=== PATIENT | female | born 1970 | race Caucasian/White ===

== ENCOUNTER 2016-09-05 | Inpatient (IN) | payer BC ==
[~2016-09-05] VITALS: Ht 167.6 cm; Wt 74.2 kg
[~2016-09-05] MED LIST: ATEN-173 PO; METH-589 PO; MULT-506 PO
[2016-09-05] MEDS ORDERED: SODIUM CHLORIDE 0.9% 1000ML 1,000 ML IV STA (00:20)
--- NOTE | 2016-09-05 00:22 | EMERGENCY ROOM VISIT NOTE ---
History Report prepared by Barby: Makayla Piper Under the Supervision of: Dr. Aiden Regalado M.D. First contact with patient: 00:09 Chief Complaint: ABDOMINAL PAIN Stated Complaint: ABD PAIN History of Present Illness The patient is a 46 year old female who presents to the Emergency Room with complaints of mid abdominal pain that began this evening. She also complains of nausea and vomiting. The patient has a history of colon cancer and has an ileostomy. She did recently empty her ileostomy but has had less than normal output since then. She had surgery in 2013 and finished chemotherapy in December 2014. She is in remission at this point. She has not had abdominal issues in a while. Her most recent routine imaging and endoscopy was in April. She does not have a history of bowel obstructions. The patient has not taken anything for nausea or pain this evening. Denies fever, hematemesis, or other complaints Source of History: patient Onset: this evening Position: abdomen Timing: other (persistent) Associated Symptoms: + nausea, + vomiting, No fevers Review of Systems See HPI for pertinent positives & negatives. A total of 10 systems reviewed and were otherwise negative. Past Medical & Surgical Medical Problems: (1) Carcinoma of rectosigmoid (colon) (2) Hyperthyroidism Surgical Problems: (1) History of breast lump/mass excision (2) Status post biopsy (3) Status post colon resection (4) Status post resection liver met Family History FHx: cancer Social History Smoking Status: Never Smoker Drug Use: none Marital Status: single Occupation Status: employed Current/Historical Medications Scheduled Atenolol (Tenormin), 25 MG PO DAILY Methimazole (Methimazole ), 2.5 MG PO DAILY Allergies Coded Allergies: POLLEN (Verified Allergy, Unknown, UNKNOWN, 09/05/16) SINUS PROBLEMS Physical Exam Vital Signs Date Time Temp Pulse Resp B/P Pulse Ox O2 Delivery O2 Flow Rate FiO2 09/05/16 04:41 36.5 76 16 131/90 97 09/05/16 04:17 76 16 131/90 97 Room Air 09/05/16 02:30 87 18 143/95 100 Room Air 09/05/16 00:04 36.5 91 21 156/104 99 Room Air Physical Exam GENERAL: Patient is uncomfortable appearing and in mild distress. HEENT: No acute trauma, normocephalic atraumatic, mucous membranes dry, no nasal congestion, no scleral icterus. NECK: No stridor, no adenopathy, no meningismus, trachea is midline. LUNGS: No dyspnea. Clear to auscultation and equal bilaterally. No wheeze, no rhonchi. HEART: Regular rate and rhythm. No murmurs, rubs, gallops appreciated. ABDOMEN: Soft, tender to palpation of the mid-abdomen over incision scar, bowel sounds hyperactive, no masses appreciated, no peritonitis, she has an ostomy in the right mid-abdomen with minimal stool. BACK: No midline tenderness, no CVA tenderness EXTREMITIES: Normal motion all extremities, no cyanosis, no edema. NEUROLOGIC: Alert and oriented, no acute motor or sensory deficits, no focal weakness, cranial nerves grossly intact. SKIN: No rash, no jaundice, no diaphoresis. Medical Decision & Procedures ER Provider Diagnostic Interpretation: CT results as stated below per interpretation by me and the radiologist: CT ABDOMEN & PELVIS: Multiple comparison images including MRI of the pelvis dated 12/11/2013, CT of the pelvis 01/16/2014, CT of the abdomen and pelvis 11/28/2013, and PET CT 2013. Interval surgical changes of the rectosigmoid colon. There is prominent soft tissue and stranding in the presacral region, likely relating to prior surgery and treatment-related changes. Right lower quadrant ostomy is new since comparison. There are dilated, fluid- filled loops of small bowel measuring up to 3.5 cm concerning for small bowel obstruction. Transition point located in the mid pelvis (series 2, image 67). Trace interloop free fluid is present. Subcentimeter hypodensity in the left hepatic lobe measures up to 0.8 cm ( series 3, image 92) and is new since comparison. Remaining solid organs are unremarkable. Postsurgical changes of the right hepatic lobe. Stable subcentimeter hypodensity in the right hepatic lobe. Signed by Dr. Lance Cruz MD. Laboratory Results 09/05/16 00:33 Red Blood Count 5.15, Mean Corpuscular Volume 88.0, Mean Corpuscular Hemoglobin 32.6, Mean Corpuscular Hemoglobin Concent 37.1, Mean Platelet Volume 9.8, Neutrophils (%) (Auto) 77.9, Lymphocytes (%) (Auto) 14.2, Monocytes (%) (Auto) 6.5, Eosinophils (%) (Auto) 0.9, Basophils (%) (Auto) 0.3, Neutrophils # (Auto) 7.68, Lymphocytes # (Auto) 1.40, Monocytes # (Auto) 0.64, Eosinophils # (Auto) 0.09, Basophils # (Auto) 0.03 Test 09/05/16 00:33 09/05/16 00:35 09/05/16 00:55 09/05/16 04:44 White Blood Count 9.86 K/uL (4.8-10.8) Red Blood Count 5.15 M/uL (4.2-5.4) Hemoglobin 16.8 g/dL (12.0-16.0) Hematocrit 45.3 % (37-47) Mean Corpuscular Volume 88.0 fL (80-100) Mean Corpuscular Hemoglobin 32.6 pg (25-34) Mean Corpuscular Hemoglobin Concent 37.1 g/dl (32-36) Platelet Count 202 K/uL (130-400) Mean Platelet Volume 9.8 fL (7.4-10.4) Neutrophils (%) (Auto) 77.9 % Lymphocytes (%) (Auto) 14.2 % Monocytes (%) (Auto) 6.5 % Eosinophils (%) (Auto) 0.9 % Basophils (%) (Auto) 0.3 % Neutrophils # (Auto) 7.68 K/uL (1.4-6.5) Lymphocytes # (Auto) 1.40 K/uL (1.2-3.4) Monocytes # (Auto) 0.64 K/uL (0.11-0.59) Eosinophils # (Auto) 0.09 K/uL (0-0.5) Basophils # (Auto) 0.03 K/uL (0-0.2) RDW Standard Deviation 39.5 fL (36.4-46.3) RDW Coefficient of Variation 12.4 % (11.5-14.5) Immature Granulocyte % (Auto) 0.2 % Immature Granulocyte # (Auto) 0.02 K/uL (0.00-0.02) Est Creatinine Clear Calc Drug Dose 82.0 ml/min Total Bilirubin 0.9 mg/dl (0.2-1) Direct Bilirubin 0.2 mg/dl (0-0.2) Aspartate Amino Transf (AST/SGOT) 20 U/L (15-37) Alanine Aminotransferase (ALT/SGPT) 36 U/L (12-78) Alkaline Phosphatase 111 U/L (45-117) Total Protein 8.2 gm/dl (6.4-8.2) Albumin 4.2 gm/dl (3.4-5.0) Lipase 157 U/L (73-393) Bedside Hemoglobin 16.0 g/dl (12.0-16.0) Bedside Hematocrit 47 % (37-47) Bedside Sodium 139 mEq/L (135-144) Bedside Potassium 3.2 mEq/L (3.3-5.0) Bedside Chloride 98 mEq/L (101-112) Bedside Total CO2 26 mEq/l (24-31) Bedside Blood Urea Nitrogen 10 mg/dl (7-18) Bedside Creatinine 0.7 mg/dl (0.6-1.3) Bedside Glucose (other) 131 mg/dl (70-99) Bedside Ionized Calcium (Eusebio) 1.22 mmol/l (1.12-1.32) Urine Color YELLOW Urine Appearance CLOUDY (CLEAR) Urine pH 6.5 (4.5-7.5) Urine Specific [place] 1.017 (1.000-1.030) Urine Protein NEG (NEG) Urine Glucose (UA) NEG (NEG) Urine Ketones TRACE (NEG) Urine Occult Blood NEG (NEG) Urine Nitrite NEG (NEG) Urine Bilirubin NEG (NEG) Urine Urobilinogen NEG (NEG) Urine Leukocyte Esterase MODERATE (NEG) Urine WBC (Auto) 5-10 /hpf (0-5) Urine RBC (Auto) 5-10 /hpf (0-4) Urine Hyaline Casts (Auto) 10-30 /lpf (0-5) Urine Epithelial Cells (Auto) 20-30 /lpf (0-5) Urine Bacteria (Auto) NEG (NEG) Urine Test NEG (NEG) Laboratory results as reviewed by me. Medications Administered Medications (Trade) Dose Ordered Sig/Giovana Route Start Time Stop Time Status Last Admin Dose Admin Sodium Chloride (Nss 1000ml) 1,000 ml @ 999 mls/hr Q1H1M STAT IV 09/05/16 00:20 09/05/16 01:20 DC 09/05/16 00:40 999 MLS/HR Ondansetron HCl (Zofran Inj) 4 mg NOW STAT IV 09/05/16 00:33 09/05/16 00:34 DC 09/05/16 00:40 4 MG Lorazepam (Ativan Inj) 1 mg NOW STAT IV 09/05/16 01:48 09/05/16 01:49 DC 09/05/16 02:07 1 MG Morphine Sulfate (MoRPHine SULFATE INJ) 4 mg NOW STAT IV 09/05/16 02:44 09/05/16 02:45 DC 09/05/16 03:13 4 MG ED Course 0014: The patient was evaluated in room B5. A complete history and physical exam was performed. 0020: Ordered NSS 1000 ml @ 999 mls/hr IV. 0030: I reassessed the patient. She requested Zofran for nausea as it has worked for her before. 0033: Ordered Zofran Inj 4 mg IV. 0106: I reassessed the patient. She was less nauseous. 0148: I reassessed the patient and updated her on results so far. Ordered Ativan Inj 1 mg IV. 0240: I reassessed the patient. NG tube was in place. She requested something for pain. I discussed test results with her and she agreed with the plan. 0244: Ordered Morphine Sulfate 4 mg IV. 0300: I discussed the case with Dr. Nuha Barbosa. He requested that I make general surgery aware of the case. The patient will be evaluated for further management. 0311: I discussed the case with Dr. Younger - General Surgery. Medical Decision Differential: Gastroenteritis, Food Borne, Esophageal Perforation, , Electrolyte Abnormality, Dehydration, Intraabdominal Infection, UTI/ Pyelonephritis, Bowel Obstruction, Biliary Pathology, amongst other pathology entertained. 46 yr old female s/p colon CA with resection, chemo, radiation ending 2.5 yrs ago though since with ileostomy. Notes rapid onset nausea, vomiting, abdominal pain and decreased bowel outputs. She has evidence of obstruction by exam, story and confirmed by CT abdo/pelv. NG tube placed with improvement though was given some morphine for discomfort from NG tube. She does not have surgical abdomen by examination. She is stable, in no distress and breathing comfortable. Gen Surg aware anf will admit to medicine service. Consults Time Called: [phone] Consulting Physician: Dr. Nuha Barbosa Returned Call: [phone] I discussed the case with him. He requested that I make general surgery aware of the case. The patient will be evaluated for further management. Additional Consults: Time Called: [phone] Consulted Physician: Dr. Younger - General Surgery Returned Call: [phone] Additional Comments: I discussed the case with him. Impression Primary Impression: Small bowel obstruction Scribe Attestation The scribe's documentation has been prepared under my direction and personally reviewed by me in its entirety. I confirm that the note above accurately reflects all work, treatment, procedures, and medical decision making performed by me. Departure Information Dispostion Being Evaluated By Hospitalist Referrals Cora Reaves D.O. (PCP) Patient Instructions My [facility]
[2016-09-05] MEDS ORDERED: OPTIRAY 320 IV PRN (00:30)
[2016-09-05] MEDS ORDERED: ONDANSETRON INJ 2 MG/ML 2 ML VIAL IV STA (00:33)
[2016-09-05 00:50] LABS: BASO % 0.3 %; BASO ABS # 0.03 K/uL (0-0.2); COMPLETE YES; EOS % 0.9 %; HEMATOCRIT 45.3 % (37-47); IG% 0.2 %; LYMPH % 14.2 %; MEAN CORPUSCULAR HEMOGLOBIN 32.6 pg (25-34); MEAN CORPUSCULAR HGB CONC 37.1 g/dl (32-36); MEAN PLATELET VOLUME 9.8 fL (7.4-10.4); MONO % 6.5 %; NEUT % 77.9 %; PLATELET COUNT 202 K/uL (130-400); RED BLOOD COUNT 5.15 M/uL (4.2-5.4); WHITE BLOOD COUNT 9.86 K/uL (4.8-10.8)
[2016-09-05 00:59] LABS: ISTAT CREATININE 0.7 mg/dl (0.6-1.3); ISTAT IONIZED CALCIUM 1.22 mmol/l (1.12-1.32)
[2016-09-05 01:15] LABS: URINE APPEARANCE CLOUDY (CLEAR); URINE BILIRUBIN NEG (NEG); URINE COLOR YELLOW; URINE EPITHELIAL CELL AUTO 20-30 /lpf (0-5); URINE NITRITE NEG (NEG); URINE PH 6.5 (4.5-7.5); URINE SPECIFIC GRAVITY 1.017 (1.000-1.030); UROBILINOGEN NEG (NEG); ZZUR CULT IF INDIC CLEAN CATCH NO
[2016-09-05 01:17] LABS: BUN/CREATININE RATIO 12.2 (10-20); CALCIUM 9.9 mg/dl (8.5-10.1); CREATININE 0.88 mg/dl (0.60-1.20); POTASSIUM 3.1 mmol/L (3.5-5.1)
[2016-09-05 01:19] LABS: MANUAL MICROSCOPIC REQUIRED? NO; REVIEW REQ? NO
[2016-09-05] MEDS ORDERED: LORAZEPAM 2 MG/ML 1 ML VIAL IV STA (01:48)
[2016-09-05] MEDS ORDERED: MoRPHine SULFATE 4 MG/ML 1 ML CARP\\VIAL IV STA (02:44)
[2016-09-05] MEDS ORDERED: ONDANSETRON INJ 2 MG/ML 2 ML VIAL IV PRN (04:45)
[2016-09-05 04:48] VITALS: BP 142/95; PULSE 92; TEMP 36.8; O2SAT 95; Ht 167.6 cm; Wt 74.2 kg
--- NOTE | 2016-09-05 04:59 | History and Physical ---
History & Physical Date & Time of Service: Sep 05, 2016 at 04:00 . Chief Complaint: abdominal pain, nausea, vomiting . Primary Care Physician: Cora Reaves D.O. . History of Present Illness Source: patient, clinic records, hospital records 46 YO female followed by Dr. Cora Reaves. 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 Received chemotherapy, radiation therapy, with subsequent rectosigmoid resection and resection of liver met in April 2014. MRI of liver 05/07/16 showed subcentimeter lesions in the left and right hepatic lobes with features most consistent with benign cysts. CEA on 08/26/16 was 2.2. Tonight around 20:30 she developed abdominal pain and bloating. Abdominal pain was right-sided and did not radiate. Subsequently developed nausea and vomiting. No hematemesis. Ostomy output seemed to be less than usual. No melena or hematochezia. No fever, chills, sweats. No chest pain, cough, SOB. . Past Medical/Surgical History Medical Problems: (1) Carcinoma of rectosigmoid (colon) Permanent Comment: Rectal mass on digital exam Status post MRI revealing liver metastasis Status post FNA of liver revealing adenocarcinoma Colonoscopy 08/23/2013 revealing obstructing mass rectosigmoid colon EUS staging uT3 uT1 M1 Systemic chemotherapy with modified FOLFOX 6 Status post completion of combined radiation and chemotherapy. 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 Status: Resolved (2) Hyperthyroidism Status: Chronic Surgical Problems: (1) History of breast lump/mass excision Status: Chronic (2) Status post biopsy Status: Chronic (3) Status post colon resection Status: Chronic (4) Status post resection liver met Status: Chronic . 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 . Physical Exam Vital Signs Date Time Temp Pulse Resp B/P Pulse Ox O2 Delivery O2 Flow Rate FiO2 09/05/16 04:41 36.5 76 16 131/90 97 09/05/16 04:17 76 16 131/90 97 Room Air 09/05/16 02:30 87 18 143/95 100 Room Air 09/05/16 00:04 36.5 91 21 156/104 99 Room Air General Appearance: WD/WN, no apparent distress Head: normocephalic, atraumatic Eyes: normal inspection, PERRL, EOMI, sclerae normal (conjunctivae pink) ENT: hearing grossly normal, + pertinent finding (NGT right nostril) Neck: supple, no adenopathy, thyroid normal, no JVD, trachea midline Respiratory/Chest: lungs clear, no respiratory distress, no accessory muscle use Cardiovascular: regular rate, rhythm, no edema, no gallop, no JVD, no murmur Abdomen/GI: + pertinent finding (quiet bowel sounds, slightly distended, mild right-sided tenderness, right ostomy with loose brown stool) Extremities/Musculoskelatal: normal inspection, no calf tenderness, no pedal edema 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9 % Lymphocytes (%) (Auto) 14.2 % Monocytes (%) (Auto) 6.5 % Eosinophils (%) (Auto) 0.9 % Basophils (%) (Auto) 0.3 % Neutrophils # (Auto) 7.68 1.4-6.5 K/uL Lymphocytes # (Auto) 1.40 1.2-3.4 K/uL Monocytes # (Auto) 0.64 0.11-0.59 K/uL Eosinophils # (Auto) 0.09 0-0.5 K/uL Basophils # (Auto) 0.03 0-0.2 K/uL RDW Standard Deviation 39.5 36.4-46.3 fL RDW Coefficient of Variation 12.4 11.5-14.5 % Immature Granulocyte % (Auto) 0.2 % Immature Granulocyte # (Auto) 0.02 0.00-0.02 K/uL Sodium Level 140 136-145 mmol/L Potassium Level 3.1 3.5-5.1 mmol/L Chloride Level 101 98-107 mmol/L Carbon Dioxide Level 28 21-32 mmol/L Anion Gap 11.0 19.0 16-25 mmol/L Blood Urea Nitrogen 11 7-18 mg/dl Creatinine 0.88 0.60-1.20 mg/dl Est Creatinine Clear Calc Drug Dose 82.0 ml/min Estimated GFR () 91.3 Estimated GFR (Non- 78.8 BUN/Creatinine Ratio 12.2 10-20 Random Glucose 129 70-99 mg/dl Calcium Level 9.9 8.5-10.1 mg/dl Total Bilirubin 0.9 0.2-1 mg/dl Direct Bilirubin 0.2 0-0.2 mg/dl Aspartate Amino Transf (AST/SGOT) 20 15-37 U/L Alanine Aminotransferase (ALT/SGPT) 36 12-78 U/L Alkaline Phosphatase 111 45-117 U/L Total Protein 8.2 6.4-8.2 gm/dl Albumin 4.2 3.4-5.0 gm/dl Lipase 157 73-393 U/L Bedside Hemoglobin 16.0 12.0-16.0 g/dl Bedside Hematocrit 47 37-47 % Bedside Sodium 139 135-144 mEq/L Bedside Potassium 3.2 3.3-5.0 mEq/L Bedside Chloride 98 101-112 mEq/L Bedside Total CO2 26 24-31 mEq/l Bedside Blood Urea Nitrogen 10 7-18 mg/dl Bedside Creatinine 0.7 0.6-1.3 mg/dl Bedside Glucose (other) 131 70-99 mg/dl Bedside Ionized Calcium (Eusebio) 1.22 1.12-1.32 mmol/l Urine Color YELLOW Urine Appearance CLOUDY CLEAR Urine pH 6.5 4.5-7.5 Urine Specific [place] 1.017 1.000-1.030 Urine Protein NEG NEG Urine Glucose (UA) NEG NEG Urine Ketones TRACE NEG Urine Occult Blood NEG NEG Urine Nitrite NEG NEG Urine Bilirubin NEG NEG Urine Urobilinogen NEG NEG Urine Leukocyte Esterase MODERATE NEG Urine WBC (Auto) 5-10 0-5 /hpf Urine RBC (Auto) 5-10 0-4 /hpf Urine Hyaline Casts (Auto) 10-30 0-5 /lpf Urine Epithelial Cells (Auto) 20-30 0-5 /lpf Urine Bacteria (Auto) NEG NEG Urine Test NEG NEG Diagnostic Radiology CT ABDOMEN + PELVIS (preliminary reading per [facility]): postsurgical changes from resection of rectosigmoid colon RLQ ostomy dilated, fluid-filled loops of small bowel measuring up to 3.5 cm concerning for SBO 8 mm lesion left hepatic lobe . Impression Assessment and Plan SMALL BOWEL OBSTRUCTION CT findings consistent with small bowel obstruction. History of colon Ca with rectosigmoid resection. NGT placed in ED. Initial management will consist of bowel rest, IV fluids, analgesics, anti- emetics. Consult General Surgery- ED physician spoke to surgeon head of acquisitions. HEPATIC LESION LEFT LOBE History of liver met, resected. Being followed for subcentimeter lesions left and right hepatic lobes. Recent MRI consistent with cysts. Follow. HYPERTHYROIDISM Usually managed with methimazole and atenolol. Will be NPO until SBO resolves. Change beta antonio to IV metoprolol. Resume methimazole and atenolol when able. VTE PROPHYLAXIS No anticoagulants at this time in case surgical intervention necessary. SCD's. Ambulate. DISPOSITION Admit to Telemetry Unit due to need for cardiac monitoring with IV beta antonio) . Expected discharge to home. Family Medicine follow-up with Dr. Reaves. Medical Oncology follow-up with Dr. Jesus Pichardo. . VTE Prophylaxis VTE Risk Assessment Done? Y/N: Yes Risk Level: Moderate Given or contraindicated: SCD's
[2016-09-05] MEDS: METOPROLOL TARTRATE 1 MG/ML VIAL IV. SCH ×3 (06:08→17:52)
[2016-09-05] MEDS: POTASSIUM CHLORIDE INJ 20 MEQ in D5W AND LACTATED RINGERS 1,000 ML IV SCH ×3 (06:08→20:21)
--- NOTE | 2016-09-05 06:58 | DIAGNOSTIC IMAGING REPORT ---
CT ABD/PELVIS IV CONTRAST ONLY CLINICAL HISTORY: Diffuse abdominal pain, nausea, vomiting. COMPARISON STUDY: 11/28/2013 TECHNIQUE: Following the IV administration of 92 mL of Optiray-320, CT scan of the abdomen and pelvis was performed from the lung bases to the proximal femurs. Images are reviewed in the axial, sagittal, and coronal planes. IV contrast was administered without complication. CT DOSE: 363.30 mGy.cm FINDINGS: Lower chest: There is a stable 3 mm right lower lobe pulmonary nodule. Liver: There are a few subcentimeter hypodensities, most consistent with cysts. Portal vein appears patent. There is minor prominence the central hepatic ducts. There are postsurgical changes of a partial right lobe hepatectomy. Gallbladder: Surgically absent Spleen: Mildly enlarged measuring 12 cm Pancreas: Unremarkable. Adrenal glands: Unremarkable. Kidneys: There is an 11 mm left renal cyst Bowel: There is a right-sided ostomy. There are dilated fluid-filled proximal small bowel loops with decompression of distal small bowel. The findings are consistent with a small bowel obstructive pattern. There are postsurgical changes in the rectosigmoid. There is presacral soft tissue thickening. Peritoneum: There is trace pelvic fluid. No free air is visualized. Vasculature: The abdominal aorta is normal in course and caliber. Adenopathy: None. Pelvic viscera: The bladder, and pelvic viscera are unremarkable. Skeletal structures: No destructive osseous lesions are seen. IMPRESSION: 1. Interval partial right hepatic lobectomy, and interval bowel surgery with creation of a right lower quadrant ostomy 2. Small bowel obstructive pattern. Electronically signed by: Dao Alexander M.D. 09/05/2016 6:57 AM Dictated Date/Time: 09/05/2016 6:50 AM
[2016-09-05 07:24] VITALS: BP 138/86; PULSE 68; TEMP 36.7; O2SAT 96
[2016-09-05 07:35] LABS: BUN/CREATININE RATIO 12.2 (10-20); CALCIUM 9.3 mg/dl (8.5-10.1); CREATININE 0.74 mg/dl (0.60-1.20); POTASSIUM 3.6 mmol/L (3.5-5.1)
--- NOTE | 2016-09-05 07:36 | Pre-Operative Consultation ---
History General Date of Service: Sep 05, 2016. HPI HPI: The patient is a 46 year old female being seen for partial SBO versus ileus. She has complaints of mid abdominal pain that began last evening. She had associated nausea and vomiting. The patient has a history of rectal cancer and has an permanent ileostomy. She did recently empty her ileostomy but has had less than normal output but the same consistency. She had surgery in 2013 and finished chemotherapy in December 2014. Her most recent routine imaging and endoscopy was in April. She does not have a history of bowel obstructions. A CT scan shows signs consistent with a SBO although her stoma is working well. Procedure Urgency: Acute Risk Assessment Daily beta zaira use?: Yes Beta Zaira Details Indication Beta Zaira use: hypertension Problem List Medical Problems: (1) Small bowel obstruction Status: Acute Medical & Surgical History Past Medical History: cancer - colon, hypertension, hyperthyroidism Past Surgical History: colectomy, other (partial liver resection) Family History Family History: no pertinent family hx Social History Hx Tobacco Use In Past Year?: No Smoking Status: Never Smoker Drug Use: none Marital status: single Occupation status: employed Allergies Allergies: Coded Allergies: POLLEN (Verified Allergy, Unknown, UNKNOWN, 09/05/16) SINUS PROBLEMS Medications Current Inpatient Medications Current Inpatient Medications Medications (Trade) Dose Ordered Sig/Giovana Route Start Time Stop Time Status Last Admin Dose Admin Ioversol (Optiray 320) 100 ml UD PRN IV 09/05/16 00:30 09/09/16 00:29 Ondansetron HCl 4 mg 4 mg Q6H PRN IV 09/05/16 04:00 10/05/16 03:59 Potassium Chloride/Dextrose/ Lactated Ringer's (KCl Inj/D5W And Lactated Ringers) 1,010 ml @ 150 mls/hr Q6H44M IV 09/05/16 05:30 10/05/16 05:29 09/05/16 06:08 150 MLS/HR Hydromorphone HCl (Dilaudid Inj) 1 mg Q2H PRN IV 09/05/16 04:45 09/19/16 04:44 Metoprolol Tartrate (Lopressor Iv) 2.5 mg Q6 IV. 09/05/16 06:00 10/05/16 05:59 09/05/16 06:08 2.5 MG Review of Systems Review of Systems Constitutional: denies chills, denies diaphoresis, denies fever, denies weakness Eyes: reports: no symptoms ENT: reports: no symptoms reported Cardiovascular: denies: chest pain, chest pressure, chest tightness, palpitations, syncope Respiratory: denies: cough, cyanosis, orthopnea, short of breath, stridor, wheezing Gastrointestinal: abdominal pain, denies constipation, denies diarrhea, nausea , vomiting Genitourinary - Female: reports: no symptoms Musculoskeletal: denies back pain, denies joint pain, denies joint swelling, denies muscle stiffness, denies neck pain Integumentary: denies change in hair/nails, denies dryness, denies lesions, denies lumps, denies rash Neurologic: reports: no symptoms Psychiatric: reports: no symptoms Endocrine: denies: cold intolerance, hair changes, heat intolerance, polydipsia , polyuria Hematologic / Lymphatic: no symptoms Allergic / Immunologic: no symptoms Physical Exam Physical Exam General Appearance: + WD/WN, No distress Ears, Nose, Throat: + normal ENT inspection Neck: No abnormal inspection, No lymphadenophy, No stiffness, No tenderness, No tracheal deviation Respiratory: No abnormal breath sounds, No decreased breath sounds, No rales, No rhonchi, No stridor, No wheezing Cardiovascular: + other (right IJ port), No diastolic murmur, No gallop/S3, No gallop/S4, No systolic murmur, No tachycardia Abdomen: + other (pink and patent ileostomy), No abnormal bowel sounds, No distension, No hernia, No organomegaly, No tenderness Extremities: No calf tenderness, No deformity, No inflammation, No swelling Neurologic/Psychiatric: No disorientation, No motor deficit/weakness, No sensory deficit Skin Characteristics: No diaphoresis, No jaundice, No pallor, No rash Lymphatic: No abnormal adenopathy Diagnostics Labs Labs Results Past 24 Hours Test 09/05/16 00:33 09/05/16 00:35 09/05/16 00:55 09/05/16 05:57 Range/Units White Blood Count 9.86 4.8-10.8 K/uL Red Blood Count 5.15 4.2-5.4 M/uL Hemoglobin 16.8 12.0-16.0 g/dL Hematocrit 45.3 37-47 % Mean Corpuscular Volume 88.0 80-100 fL Mean Corpuscular Hemoglobin 32.6 25-34 pg Mean Corpuscular Hemoglobin Concent 37.1 32-36 g/dl Platelet Count 202 130-400 K/uL Mean Platelet Volume 9.8 7.4-10.4 fL Neutrophils (%) (Auto) 77.9 % Lymphocytes (%) (Auto) 14.2 % Monocytes (%) (Auto) 6.5 % Eosinophils (%) (Auto) 0.9 % Basophils (%) (Auto) 0.3 % Neutrophils # (Auto) 7.68 1.4-6.5 K/uL Lymphocytes # (Auto) 1.40 1.2-3.4 K/uL Monocytes # (Auto) 0.64 0.11-0.59 K/uL Eosinophils # (Auto) 0.09 0-0.5 K/uL Basophils # (Auto) 0.03 0-0.2 K/uL RDW Standard Deviation 39.5 36.4-46.3 fL RDW Coefficient of Variation 12.4 11.5-14.5 % Immature Granulocyte % (Auto) 0.2 % Immature Granulocyte # (Auto) 0.02 0.00-0.02 K/uL Sodium Level 140 136-145 mmol/L Potassium Level 3.1 3.5-5.1 mmol/L Chloride Level 101 98-107 mmol/L Carbon Dioxide Level 28 21-32 mmol/L Anion Gap 11.0 19.0 16-25 mmol/L Blood Urea Nitrogen 11 7-18 mg/dl Creatinine 0.88 0.60-1.20 mg/dl Est Creatinine Clear Calc Drug Dose 82.0 ml/min Estimated GFR () 91.3 Estimated GFR (Non- 78.8 BUN/Creatinine Ratio 12.2 10-20 Random Glucose 129 70-99 mg/dl Calcium Level 9.9 8.5-10.1 mg/dl Total Bilirubin 0.9 0.2-1 mg/dl Direct Bilirubin 0.2 0-0.2 mg/dl Aspartate Amino Transf (AST/SGOT) 20 15-37 U/L Alanine Aminotransferase (ALT/SGPT) 36 12-78 U/L Alkaline Phosphatase 111 45-117 U/L Total Protein 8.2 6.4-8.2 gm/dl Albumin 4.2 3.4-5.0 gm/dl Lipase 157 73-393 U/L Bedside Hemoglobin 16.0 12.0-16.0 g/dl Bedside Hematocrit 47 37-47 % Bedside Sodium 139 135-144 mEq/L Bedside Potassium 3.2 3.3-5.0 mEq/L Bedside Chloride 98 101-112 mEq/L Bedside Total CO2 26 24-31 mEq/l Bedside Blood Urea Nitrogen 10 7-18 mg/dl Bedside Creatinine 0.7 0.6-1.3 mg/dl Bedside Glucose (other) 131 70-99 mg/dl Bedside Ionized Calcium (Eusebio) 1.22 1.12-1.32 mmol/l Urine Color YELLOW Urine Appearance CLOUDY CLEAR Urine pH 6.5 4.5-7.5 Urine Specific [place] 1.017 1.000-1.030 Urine Protein NEG NEG Urine Glucose (UA) NEG NEG Urine Ketones TRACE NEG Urine Occult Blood NEG NEG Urine Nitrite NEG NEG Urine Bilirubin NEG NEG Urine Urobilinogen NEG NEG Urine Leukocyte Esterase MODERATE NEG Urine WBC (Auto) 5-10 0-5 /hpf Urine RBC (Auto) 5-10 0-4 /hpf Urine Hyaline Casts (Auto) 10-30 0-5 /lpf Urine Epithelial Cells (Auto) 20-30 0-5 /lpf Urine Bacteria (Auto) NEG NEG Urine Test NEG NEG Diagnostic Radiology Diagnostic Radiology CT ABD/PELVIS IV CONTRAST ONLY CLINICAL HISTORY: Diffuse abdominal pain, nausea, vomiting. COMPARISON STUDY: 11/28/2013 TECHNIQUE: Following the IV administration of 92 mL of Optiray-320, CT scan of the abdomen and pelvis was performed from the lung bases to the proximal femurs. Images are reviewed in the axial, sagittal, and coronal planes. IV contrast was administered without complication. CT DOSE: 363.30 mGy.cm FINDINGS: Lower chest: There is a stable 3 mm right lower lobe pulmonary nodule. Liver: There are a few subcentimeter hypodensities, most consistent with cysts. Portal vein appears patent. There is minor prominence the central hepatic ducts. There are postsurgical changes of a partial right lobe hepatectomy. Gallbladder: Surgically absent Spleen: Mildly enlarged measuring 12 cm Pancreas: Unremarkable. Adrenal glands: Unremarkable. Kidneys: There is an 11 mm left renal cyst Bowel: There is a right-sided ostomy. There are dilated fluid-filled proximal small bowel loops with decompression of distal small bowel. The findings are consistent with a small bowel obstructive pattern. There are postsurgical changes in the rectosigmoid. There is presacral soft tissue thickening. Peritoneum: There is trace pelvic fluid. No free air is visualized. Vasculature: The abdominal aorta is normal in course and caliber. Adenopathy: None. Pelvic viscera: The bladder, and pelvic viscera are unremarkable. Skeletal structures: No destructive osseous lesions are seen. IMPRESSION: 1. Interval partial right hepatic lobectomy, and interval bowel surgery with creation of a right lower quadrant ostomy 2. Small bowel obstructive pattern. Impression Assessment and Plan Assessment and Plan SBO -IVF -ngt -seems to be resolving with conservative measures -will follow
[2016-09-05] MEDS: HYDROmorphone INJ 1 MG/ML SYR IV PRN ×2 (10:49→17:56)
[2016-09-05] MEDS: ONDANSETRON INJ 2 MG/ML 2 ML VIAL IV PRN ×2 (11:12→17:56)
[2016-09-05 11:36] VITALS: BP 136/90; PULSE 87; TEMP 36.8; O2SAT 94
[2016-09-05 15:44] VITALS: BP 119/78; PULSE 65; TEMP 36.5; O2SAT 95
--- NOTE | 2016-09-05 16:33 | Progress Note ---
Internal Med Progress Note Date of Service: Sep 05, 2016. Provider Documentation: SUBJECTIVE: resting comfortably nausea resolved abdominal pain much better not passing gas yet afebrile no sob OBJECTIVE: Vital Signs-as noted below Exam: General-alert and oriented ENT-normal hearing Neck-no neck masses Lungs-cta b/l no wheezing or crackles Heart-s1 and s2 heard regular rate and rhythm no murmurs Abdomen-soft bowel sounds very sluggish non tender no distension Extremities-no erythema no edema Neuro-alert and awake moves extremities Lab data as noted below. ASSESSMENT & PLAN: SMALL BOWEL OBSTRUCTION on ct scan Hx of colon Ca with rectosigmoid resection. on NG tube, iv fluids, iv antiemetics and pain control Surgery on board pain improved to continue same for now HEPATIC LESION LEFT LOBE History of liver met and s/p resection. Recent MRI consistent with cysts. TO Follow as out patient. HYPERTHYROIDISM On methimazole and atenolol. currently NPO until SBO resolves. placed on IV metoprolol. Will resume methimazole and atenolol when able to take po.. VTE PROPHYLAXIS scds ambulate DISPOSITION Monitor on Telemetry Unit due to need for cardiac monitoring with IV beta antonio). Expect to discharge home. Family Medicine follow-up with Dr. Reaves. Medical Oncology follow-up with Dr. Jesus Pichardo. . Vital Signs: Date Time Temp Pulse Resp B/P Pulse Ox O2 Delivery O2 Flow Rate FiO2 09/05/16 16:00 Room Air 09/05/16 15:44 36.5 65 18 119/78 95 Room Air 09/05/16 12:00 Room Air 09/05/16 11:42 72 09/05/16 11:36 36.8 87 18 136/90 94 09/05/16 08:00 Room Air 09/05/16 07:24 36.7 68 20 138/86 96 Room Air 09/05/16 06:08 88 117/76 09/05/16 04:48 36.8 92 18 142/95 95 Room Air 09/05/16 04:41 36.5 76 16 131/90 97 09/05/16 04:17 76 16 131/90 97 Room Air 09/05/16 02:30 87 18 143/95 100 Room Air 09/05/16 00:04 36.5 91 21 156/104 99 Room Air Lab Results: Results Past Hours Test 09/05/16 00:33 09/05/16 00:35 09/05/16 00:55 09/05/16 05:57 Range/Units White Blood Count 9.86 4.8-10.8 K/uL Red Blood Count 5.15 4.2-5.4 M/uL Hemoglobin 16.8 12.0-16.0 g/dL Hematocrit 45.3 37-47 % Mean Corpuscular Volume 88.0 80-100 fL Mean Corpuscular Hemoglobin 32.6 25-34 pg Mean Corpuscular Hemoglobin Concent 37.1 32-36 g/dl Platelet Count 202 130-400 K/uL Mean Platelet Volume 9.8 7.4-10.4 fL Neutrophils (%) (Auto) 77.9 % Lymphocytes (%) (Auto) 14.2 % Monocytes (%) (Auto) 6.5 % Eosinophils (%) (Auto) 0.9 % Basophils (%) (Auto) 0.3 % Neutrophils # (Auto) 7.68 1.4-6.5 K/uL Lymphocytes # (Auto) 1.40 1.2-3.4 K/uL Monocytes # (Auto) 0.64 0.11-0.59 K/uL Eosinophils # (Auto) 0.09 0-0.5 K/uL Basophils # (Auto) 0.03 0-0.2 K/uL RDW Standard Deviation 39.5 36.4-46.3 fL RDW Coefficient of Variation 12.4 11.5-14.5 % Immature Granulocyte % (Auto) 0.2 % Immature Granulocyte # (Auto) 0.02 0.00-0.02 K/uL Sodium Level 140 141 136-145 mmol/L Potassium Level 3.1 3.6 3.5-5.1 mmol/L Chloride Level 101 106 98-107 mmol/L Carbon Dioxide Level 28 25 21-32 mmol/L Anion Gap 11.0 19.0 10.0 3-11 mmol/L Blood Urea Nitrogen 11 9 7-18 mg/dl Creatinine 0.88 0.74 0.60-1.20 mg/dl Est Creatinine Clear Calc Drug Dose 82.0 97.5 ml/min Estimated GFR () 91.3 112.6 Estimated GFR (Non- 78.8 97.2 BUN/Creatinine Ratio 12.2 12.2 10-20 Random Glucose 129 127 70-99 mg/dl Calcium Level 9.9 9.3 8.5-10.1 mg/dl Total Bilirubin 0.9 0.2-1 mg/dl Direct Bilirubin 0.2 0-0.2 mg/dl Aspartate Amino Transf (AST/SGOT) 20 15-37 U/L Alanine Aminotransferase (ALT/SGPT) 36 12-78 U/L Alkaline Phosphatase 111 45-117 U/L Total Protein 8.2 6.4-8.2 gm/dl Albumin 4.2 3.4-5.0 gm/dl Lipase 157 73-393 U/L Bedside Hemoglobin 16.0 12.0-16.0 g/dl Bedside Hematocrit 47 37-47 % Bedside Sodium 139 135-144 mEq/L Bedside Potassium 3.2 3.3-5.0 mEq/L Bedside Chloride 98 101-112 mEq/L Bedside Total CO2 26 24-31 mEq/l Bedside Blood Urea Nitrogen 10 7-18 mg/dl Bedside Creatinine 0.7 0.6-1.3 mg/dl Bedside Glucose (other) 131 70-99 mg/dl Bedside Ionized Calcium (Eusebio) 1.22 1.12-1.32 mmol/l Urine Color YELLOW Urine Appearance CLOUDY CLEAR Urine pH 6.5 4.5-7.5 Urine Specific [place] 1.017 1.000-1.030 Urine Protein NEG NEG Urine Glucose (UA) NEG NEG Urine Ketones TRACE NEG Urine Occult Blood NEG NEG Urine Nitrite NEG NEG Urine Bilirubin NEG NEG Urine Urobilinogen NEG NEG Urine Leukocyte Esterase MODERATE NEG Urine WBC (Auto) 5-10 0-5 /hpf Urine RBC (Auto) 5-10 0-4 /hpf Urine Hyaline Casts (Auto) 10-30 0-5 /lpf Urine Epithelial Cells (Auto) 20-30 0-5 /lpf Urine Bacteria (Auto) NEG NEG Urine Test NEG NEG
[2016-09-05] MEDS ORDERED: NURSING VERBAL MED ORDER ONE (18:15)
[2016-09-05] MEDS ORDERED: SODIUM CHLORIDE 0.9% 250ML 250 ML IV ONE (18:30)
[2016-09-05 19:11] VITALS: BP 118/71; PULSE 62; TEMP 36.9; O2SAT 95
[2016-09-05 23:15] VITALS: BP 111/73; PULSE 83; TEMP 37; O2SAT 95
[2016-09-06] VITALS (8 sets, daily range): BP systolic 120–155; BP diastolic 80–101; PULSE 63–91; TEMP 36.3–37; O2SAT 94–96
[2016-09-06] MEDS: POTASSIUM CHLORIDE INJ 20 MEQ in D5W AND LACTATED RINGERS 1,000 ML IV SCH ×4 (01:53→22:44)
[2016-09-06] MEDS: KETOROLAC TROMETHAMINE 30 MG/ML VIAL IV PRN ×2 (04:17→23:44)
[2016-09-06] MEDS: METOPROLOL TARTRATE 1 MG/ML VIAL IV. SCH ×5 (05:30→23:43)
[2016-09-06 06:40] LABS: BUN/CREATININE RATIO 10.7 (10-20); CALCIUM 8.7 mg/dl (8.5-10.1); CREATININE 0.7 mg/dl (0.60-1.20); POTASSIUM 3.7 mmol/L (3.5-5.1)
--- NOTE | 2016-09-06 08:21 | DIAGNOSTIC IMAGING REPORT ---
KUB HISTORY: Small bowel obstruction. COMPARISON: Abdomen and pelvis CT 09/05/2016. FINDINGS: Multiple dilated air-filled loops of small bowel within the abdomen. These measure up to 4.8 cm in diameter. This is consistent with a small bowel obstruction. This is similar to the prior study. There is a right lower quadrant ostomy. Multiple pelvic phleboliths are again noted. Surgical clips within the right upper quadrant. A nasogastric tube terminates in the stomach. No renal calculi. No ureteral calculi. No pneumoperitoneum or pneumatosis. IMPRESSION: No change in the small bowel obstruction. Nasogastric tube terminates in the stomach. Electronically signed by: Kanu Barry M.D. 09/06/2016 8:19 AM Dictated Date/Time: 09/06/2016 8:18 AM
--- NOTE | 2016-09-06 11:22 | Surgery Progress Note ---
Surgery Progress Note Date of Service Sep 06, 2016. Subjective Post OP Day: HD 2 + bowel movement (more drainage in bag), + diet (ngt), + feeling well, + pain controlled, No nausea, No vomiting Objective Vital Signs: Date Time Temp Pulse Resp B/P Pulse Ox O2 Delivery O2 Flow Rate FiO2 09/06/16 08:00 Room Air 09/06/16 07:39 36.5 76 18 120/81 96 Room Air 09/06/16 05:30 59 09/06/16 04:15 Room Air 09/06/16 03:10 36.8 66 16 132/80 95 Room Air 09/06/16 00:00 Room Air 09/06/16 00:00 55 09/05/16 23:15 37.0 83 16 111/73 95 Room Air 09/05/16 20:00 Room Air 09/05/16 19:11 36.9 62 18 118/71 95 Room Air 09/05/16 17:52 77 09/05/16 16:00 Room Air 09/05/16 15:44 36.5 65 18 119/78 95 Room Air 09/05/16 12:00 Room Air 09/05/16 11:42 72 09/05/16 11:36 36.8 87 18 136/90 94 Physical Exam: nasogastric drainage (700cc) General Appearance: WD/WN, no apparent distress Head: normocephalic, atraumatic Neck: supple, trachea midline Respiratory/Chest: lungs clear Cardiovascular: regular rate, rhythm Abdomen: normal bowel sounds, non tender, non distended, soft Extremities: non-tender, no pedal edema Laboratory Results: Results Past 24 Hours Test 09/06/16 05:30 Range/Units Sodium Level 146 136-145 mmol/L Potassium Level 3.7 3.5-5.1 mmol/L Chloride Level 109 98-107 mmol/L Carbon Dioxide Level 29 21-32 mmol/L Anion Gap 8.0 3-11 mmol/L Blood Urea Nitrogen 8 7-18 mg/dl Creatinine 0.70 0.60-1.20 mg/dl Est Creatinine Clear Calc Drug Dose 103.0 ml/min Estimated GFR () 120.4 Estimated GFR (Non- 103.9 BUN/Creatinine Ratio 10.7 10-20 Random Glucose 109 70-99 mg/dl Calcium Level 8.7 8.5-10.1 mg/dl Assessment & Plan SBO versus ileus -con't ngt one more day -expect drainage to slow -ambulate -IVF -ngt out in AM if does well -if still alot of drainage may order contrast CT scan abd/pelvis -if adhesion from pelvic radiation would transfer to [place] for exploration, also patient's wishes
--- NOTE | 2016-09-06 16:44 | Progress Note ---
Internal Med Progress Note Date of Service: Sep 06, 2016. Provider Documentation: SUBJECTIVE: denies any abdominal pain or nausea but has some tenderness in abdomen no sob or cough no chest pain afebrile OBJECTIVE: Vital Signs-as noted below Exam: General-alert and oriented ENT-normal hearing Neck-no neck masses Lungs-cta b/l no wheezing or crackles Heart-s1 and s2 heard regular rate and rhythm no murmurs Abdomen-soft bowel sounds very sluggish non tender no distension Extremities-no erythema no edema Neuro-alert and awake moves extremities Lab data as noted below. ASSESSMENT & PLAN: SMALL BOWEL OBSTRUCTION on ct scan Hx of colon Ca with rectosigmoid resection. on NG tube, iv fluids, iv antiemetics and pain control Surgery on board pain improved NG tube draining a lot if continues to drain plan for ct abd/pelvis in am as per surgery to continue same for now HEPATIC LESION LEFT LOBE History of liver met and s/p resection. Recent MRI consistent with cysts. TO Follow as out patient. HYPERTHYROIDISM On methimazole and atenolol. currently NPO until SBO resolves. placed on IV metoprolol. Will resume methimazole and atenolol when able to take po.. stable so far VTE PROPHYLAXIS scds ambulate DISPOSITION Monitor on Telemetry Unit due to need for cardiac monitoring with IV beta antonio). Expect to discharge home. Family Medicine follow-up with Dr. Reaves. Medical Oncology follow-up with Dr. Jesus Pichardo. . Vital Signs: Date Time Temp Pulse Resp B/P Pulse Ox O2 Delivery O2 Flow Rate FiO2 09/06/16 16:05 36.9 83 18 149/101 95 Room Air 09/06/16 16:00 Room Air 09/06/16 12:00 Room Air 09/06/16 11:54 72 09/06/16 11:31 36.4 82 18 133/83 96 Room Air 09/06/16 08:00 Room Air 09/06/16 07:39 36.5 76 18 120/81 96 Room Air 09/06/16 05:30 59 09/06/16 04:15 Room Air 09/06/16 03:10 36.8 66 16 132/80 95 Room Air 09/06/16 00:00 Room Air 09/06/16 00:00 55 09/05/16 23:15 37.0 83 16 111/73 95 Room Air 09/05/16 20:00 Room Air 09/05/16 19:11 36.9 62 18 118/71 95 Room Air 09/05/16 17:52 77 Lab Results: Results Past 24 Hours Test 09/06/16 05:30 Range/Units Sodium Level 146 136-145 mmol/L Potassium Level 3.7 3.5-5.1 mmol/L Chloride Level 109 98-107 mmol/L Carbon Dioxide Level 29 21-32 mmol/L Anion Gap 8.0 3-11 mmol/L Blood Urea Nitrogen 8 7-18 mg/dl Creatinine 0.70 0.60-1.20 mg/dl Est Creatinine Clear Calc Drug Dose 103.0 ml/min Estimated GFR () 120.4 Estimated GFR (Non- 103.9 BUN/Creatinine Ratio 10.7 10-20 Random Glucose 109 70-99 mg/dl Calcium Level 8.7 8.5-10.1 mg/dl
[2016-09-07 04:03] VITALS: BP 127/84; PULSE 78; TEMP 36.7; O2SAT 95
[2016-09-07] MEDS: METOPROLOL TARTRATE 1 MG/ML VIAL IV. SCH (05:32)
[2016-09-07] MEDS: POTASSIUM CHLORIDE INJ 20 MEQ in D5W AND LACTATED RINGERS 1,000 ML IV SCH (05:33)
--- NOTE | 2016-09-07 05:45 | Surgery Progress Note ---
Surgery Progress Note Date of Service Sep 07, 2016. Subjective Post OP Day: HD 3 + bowel movement (2500 cc out of stoma bag), + feeling well, + flatus, + pain controlled Objective Vital Signs: Date Time Temp Pulse Resp B/P Pulse Ox O2 Delivery O2 Flow Rate FiO2 09/07/16 05:32 59 09/07/16 04:30 Room Air 09/07/16 04:03 36.7 78 18 127/84 95 Room Air 09/07/16 00:00 Room Air 09/06/16 23:43 70 09/06/16 23:34 36.8 63 16 128/86 95 Room Air 09/06/16 20:00 95 Room Air 09/06/16 19:59 37.0 87 15 155/95 95 09/06/16 19:00 36.3 91 20 151/99 94 Room Air 09/06/16 16:05 36.9 83 18 149/101 95 Room Air 09/06/16 16:00 Room Air 09/06/16 12:00 Room Air 09/06/16 11:54 72 09/06/16 11:31 36.4 82 18 133/83 96 Room Air 09/06/16 08:00 Room Air 09/06/16 07:39 36.5 76 18 120/81 96 Room Air General Appearance: WD/WN, no apparent distress Head: normocephalic, atraumatic Neck: supple, trachea midline Respiratory/Chest: lungs clear Cardiovascular: regular rate, rhythm Abdomen: normal bowel sounds, non distended, soft, + tenderness (mild) Extremities: non-tender, no pedal edema Assessment & Plan SBO versus ileus -ngt out -ambulate -IVF -begin clears; should resolve with consrvative measures -if recurs from adhesions from pelvic radiation would transfer to [place] for exploration, also patient's wishes
[2016-09-07 07:50] VITALS: BP 138/82; PULSE 83; TEMP 36.9; O2SAT 95
[2016-09-07 11:31] VITALS: BP 133/81; PULSE 78; TEMP 36.8; O2SAT 99
[2016-09-07] MEDS: D5W AND LACTATED RINGERS 1,000 ML IV SCH ×2 (14:17→23:37)
--- NOTE | 2016-09-07 14:48 | Progress Note ---
Internal Med Progress Note Date of Service: Sep 07, 2016. Provider Documentation: SUBJECTIVE: Off of NG tube colostomy bag filled with air and stool tolerating clears denies any nausea or abdominal pain no sob OBJECTIVE: Vital Signs-as noted below Exam: General-alert and oriented ENT-normal hearing Neck-no neck masses Lungs-cta b/l no wheezing or crackles Heart-s1 and s2 heard regular rate and rhythm no murmurs Abdomen-soft bowel sounds present non tender no distension Extremities-no erythema no edema Neuro-alert and awake moves extremities Lab data as noted below. ASSESSMENT & PLAN: SMALL BOWEL OBSTRUCTION on ct scan Hx of colon Ca with rectosigmoid resection. on NG tube, iv fluids, iv antiemetics and pain control Surgery on board pain improved NG tube draining a lot if continues to drain plan for ct abd/pelvis in am as per surgery OFF of NG tube/ Has bowel sounds and bowels moving tolerating clears HEPATIC LESION LEFT LOBE History of liver met and s/p resection. Recent MRI consistent with cysts. TO Follow as out patient. HYPERTHYROIDISM On methimazole and atenolol. currently NPO until SBO resolves. placed on IV metoprolol. Will resume methimazole and atenolol today stable so far VTE PROPHYLAXIS scds ambulate DISPOSITION If stable possible d/c in am Expect to discharge home. Family Medicine follow-up with Dr. Reaves. Medical Oncology follow-up with Dr. Jesus Pichardo. . Vital Signs: Date Time Temp Pulse Resp B/P Pulse Ox O2 Delivery O2 Flow Rate FiO2 09/07/16 12:00 Room Air 09/07/16 11:31 36.8 78 18 133/81 99 Room Air 09/07/16 08:00 Room Air 09/07/16 07:50 36.9 83 18 138/82 95 Room Air 09/07/16 05:32 59 09/07/16 04:30 Room Air 09/07/16 04:03 36.7 78 18 127/84 95 Room Air 09/07/16 00:00 Room Air 09/06/16 23:43 70 09/06/16 23:34 36.8 63 16 128/86 95 Room Air 09/06/16 20:00 95 Room Air 09/06/16 19:59 37.0 87 15 155/95 95 09/06/16 19:00 36.3 91 20 151/99 94 Room Air 09/06/16 16:05 36.9 83 18 149/101 95 Room Air 09/06/16 16:00 Room Air
[2016-09-07 16:22] VITALS: BP 128/87; PULSE 78; TEMP 36.8; O2SAT 97
[2016-09-07] MEDS ORDERED: METOPROLOL TARTRATE 1 MG/ML VIAL IV PRN (18:00)
[2016-09-07 20:02] VITALS: BP 138/91; PULSE 69; TEMP 36.4; O2SAT 99
[2016-09-08] VITALS: BP 134/86; PULSE 73; TEMP 36.8; O2SAT 96
[2016-09-08 04:00] VITALS: BP 126/86; PULSE 67; TEMP 36.8; O2SAT 98
[2016-09-08 07:30] VITALS: BP 131/91; PULSE 79; TEMP 36.4; O2SAT 98
[2016-09-08 08:37] LABS: BUN/CREATININE RATIO 5.9 (10-20); CALCIUM 8.7 mg/dl (8.5-10.1); CREATININE 0.78 mg/dl (0.60-1.20); MAGNESIUM 1.9 mg/dl (1.8-2.4); POTASSIUM 3.4 mmol/L (3.5-5.1)
[2016-09-08] MEDS ORDERED: METHIMAZOLE 5 MG TAB PO SCH (09:00)
--- NOTE | 2016-09-08 09:25 | Surgery Progress Note ---
Surgery Progress Note Date of Service Sep 08, 2016. Subjective Post OP Day: HD 5 + bowel movement, + diet (clears), + feeling well, + flatus, No complaints, No nausea, No vomiting Objective Vital Signs: Date Time Temp Pulse Resp B/P Pulse Ox O2 Delivery O2 Flow Rate FiO2 09/08/16 08:00 Room Air 09/08/16 07:30 36.4 79 18 131/91 98 Room Air 09/08/16 04:00 Room Air 09/08/16 04:00 36.8 67 18 126/86 98 Room Air 09/08/16 00:00 36.8 73 18 134/86 96 Room Air 09/08/16 00:00 Room Air 09/07/16 20:02 36.4 69 18 138/91 99 Room Air 09/07/16 20:00 Room Air 09/07/16 16:22 36.8 78 18 128/87 97 Room Air 09/07/16 16:00 Room Air 09/07/16 12:00 Room Air 09/07/16 11:31 36.8 78 18 133/81 99 Room Air General Appearance: WD/WN, no apparent distress Head: normocephalic, atraumatic Abdomen: normal bowel sounds, non tender, non distended, soft, + pertinent finding (stoma working) Extremities: normal range of motion, no pedal edema Laboratory Results: Results Past 24 Hours Test 09/08/16 07:57 Range/Units Sodium Level 144 136-145 mmol/L Potassium Level 3.4 3.5-5.1 mmol/L Chloride Level 105 98-107 mmol/L Carbon Dioxide Level 29 21-32 mmol/L Anion Gap 10.0 3-11 mmol/L Blood Urea Nitrogen 5 7-18 mg/dl Creatinine 0.78 0.60-1.20 mg/dl Est Creatinine Clear Calc Drug Dose 92.8 ml/min Estimated GFR () 105.7 Estimated GFR (Non- 91.2 BUN/Creatinine Ratio 5.9 10-20 Random Glucose 132 70-99 mg/dl Calcium Level 8.7 8.5-10.1 mg/dl Magnesium Level 1.9 1.8-2.4 mg/dl Assessment & Plan SBO versus ileus -doing well with clears -ambulate -advance diet -discharge today or tomorrow per medicine
[2016-09-08] MEDS ORDERED: POTASSIUM CHLORIDE 10 MEQ TABCR PO ONE (09:45)
[2016-09-08 11:32] VITALS: BP 134/84; PULSE 69; TEMP 36.8; O2SAT 99
--- NOTE | 2016-09-08 14:11 | Progress Note ---
Internal Med Progress Note Date of Service: Sep 08, 2016. Provider Documentation: SUBJECTIVE: Off of NG tube tolerating liquid diet colostomy bag filled with air denies nausea or abdominal pain expecting to be discharged today OBJECTIVE: Vital Signs-as noted below Exam: General-alert and oriented ENT-normal hearing Neck-no neck masses Lungs-cta b/l no wheezing or crackles Heart-s1 and s2 heard regular rate and rhythm no murmurs Abdomen-soft bowel sounds present non tender no distension Extremities-no erythema no edema Neuro-alert and awake moves extremities Lab data as noted below. ASSESSMENT & PLAN: SMALL BOWEL OBSTRUCTION on ct scan Hx of colon Ca with rectosigmoid resection. on NG tube, iv fluids, iv antiemetics and pain control Surgery on board pain improved NG tube draining a lot if continues to drain plan for ct abd/pelvis in am as per surgery OFF of NG tube/ Has bowel sounds and bowels moving tolerating clears started on full liquids and advancing as tolerates if stable will f/c today HEPATIC LESION LEFT LOBE History of liver met and s/p resection. Recent MRI consistent with cysts. TO Follow as out patient. HYPERTHYROIDISM On methimazole and atenolol which were held while NPO and was placed on IV metoprolol. Resumed methimazole and atenolol yesterday stable so far VTE PROPHYLAXIS scds ambulate DISPOSITION If stable possible d/c later today Expect to discharge home. Family Medicine follow-up with Dr. Reaves. Medical Oncology follow-up with Dr. Jesus Pichardo. . Vital Signs: Date Time Temp Pulse Resp B/P Pulse Ox O2 Delivery O2 Flow Rate FiO2 09/08/16 12:00 Room Air 09/08/16 11:32 36.8 69 18 134/84 99 Room Air 09/08/16 08:00 Room Air 09/08/16 07:30 36.4 79 18 131/91 98 Room Air 09/08/16 04:00 Room Air 09/08/16 04:00 36.8 67 18 126/86 98 Room Air 09/08/16 00:00 36.8 73 18 134/86 96 Room Air 09/08/16 00:00 Room Air 09/07/16 20:02 36.4 69 18 138/91 99 Room Air 09/07/16 20:00 Room Air 09/07/16 16:22 36.8 78 18 128/87 97 Room Air 09/07/16 16:00 Room Air Lab Results: Results Past 24 Hours Test 09/08/16 07:57 Range/Units Sodium Level 144 136-145 mmol/L Potassium Level 3.4 3.5-5.1 mmol/L Chloride Level 105 98-107 mmol/L Carbon Dioxide Level 29 21-32 mmol/L Anion Gap 10.0 3-11 mmol/L Blood Urea Nitrogen 5 7-18 mg/dl Creatinine 0.78 0.60-1.20 mg/dl Est Creatinine Clear Calc Drug Dose 92.8 ml/min Estimated GFR () 105.7 Estimated GFR (Non- 91.2 BUN/Creatinine Ratio 5.9 10-20 Random Glucose 132 70-99 mg/dl Calcium Level 8.7 8.5-10.1 mg/dl Magnesium Level 1.9 1.8-2.4 mg/dl
--- NOTE | 2016-09-08 15:25 | Discharge Instructions ---
Discharge Instructions Admission Reason for Admission: Bowel Obstruction Discharge Discharge Diagnosis / Problem: SBO Discharge Goals Goal(s): Decrease discomfort, Improve function Activity Recommendations Activity Limitations: resume your previous activity . Instructions / Follow-Up Instructions / Follow-Up FOLLOWUP WITH FAMILY DOCTOR Cora Kenny ON Sep AT 1:20PM. Current Hospital Diet Patient's current hospital diet: Regular Diet Discharge Diet Recommended Diet: Regular Diet (SOFT DIET FOR FEW DAYS) Pending Studies Studies pending at discharge: no Medical Emergencies . Who to Call and When: Medical Emergencies: If at any time you feel your situation is an emergency, please call 911 immediately. . Non-Emergent Contact Non-Emergency issues call your: Primary Care Provider . . "Provider Documentation" section prepared by Henrry Ruff. VTE Core Measure Inpt VTE Proph given/why not?: SCD's
[2016-09-08 15:27] VITALS: BP_SYST 141; BP_SYST 163; BP_DIAS 109; BP_DIAS 96; PULSE 75; TEMP 36.9; O2SAT 99
[2016-09-08 15:40] VITALS: BP 141/96; PULSE 75; TEMP 36.9; O2SAT 99
--- NOTE | 2016-09-08 18:01 | Discharge Summary ---
Discharge Summary Admission Date: Sep 05, 2016 at 04:14 Discharge Date: Sep 08, 2016 Discharge Disposition: Home Principal Diagnosis: SBO Secondary Diagnoses/Problems: (1) Carcinoma of rectosigmoid (colon) Permanent Comment: Rectal mass on digital exam Status post MRI revealing liver metastasis Status post FNA of liver revealing adenocarcinoma Colonoscopy 08/23/2013 revealing obstructing mass rectosigmoid colon EUS staging uT3 uT1 M1 Systemic chemotherapy with modified FOLFOX 6 Status post completion of combined radiation and chemotherapy. 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 Status: Resolved (2) Hyperthyroidism Status: Chronic Procedures: CT ABD/PELVIS: 1. Interval partial right hepatic lobectomy, and interval bowel surgery with creation of a right lower quadrant ostomy 2. Small bowel obstructive pattern. KUB: No change in the small bowel obstruction. Nasogastric tube terminates in the stomach. Consultations: SURGERY Medication Reconciliation Continued Medications: Atenolol (Tenormin) 25 Mg Tab 25 MG PO DAILY, TAB Methimazole (Methimazole ) 5 Mg Tab 2.5 MG PO DAILY Admission Information HPI (per Admitting provider): 46 YO female followed by Dr. Cora Reaves. 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 Received chemotherapy, radiation therapy, with subsequent rectosigmoid resection and resection of liver met in April 2014. MRI of liver 05/07/16 showed subcentimeter lesions in the left and right hepatic lobes with features most consistent with benign cysts. CEA on 08/26/16 was 2.2. Tonight around 20:30 she developed abdominal pain and bloating. Abdominal pain was right-sided and did not radiate. Subsequently developed nausea and vomiting. No hematemesis. Ostomy output seemed to be less than usual. No melena or hematochezia. No fever, chills, sweats. No chest pain, cough, SOB. . Physical Exam (per Admitting): General Appearance: WD/WN, no apparent distress Head: normocephalic, atraumatic Eyes: normal inspection, PERRL, EOMI, sclerae normal (conjunctivae pink) ENT: hearing grossly normal, + pertinent finding (NGT right nostril) Neck: supple, no adenopathy, thyroid normal, no JVD, trachea midline Respiratory/Chest: lungs clear, no respiratory distress, no accessory muscle use Cardiovascular: regular rate, rhythm, no edema, no gallop, no JVD, no murmur Abdomen/GI: + pertinent finding (quiet bowel sounds, slightly distended, mild right-sided tenderness, right ostomy with loose brown stool) Extremities/Musculoskelatal: normal inspection, no calf tenderness, no pedal edema Neurologic/Psych: chiropractic assistant II-XII nml as tested (PERRL, EOMI, no facial palsy), alert, oriented x 3 Skin: normal color, warm/dry, no rash Lymphatic: no adenopathy Physical Exam (per Admitting): General Appearance: WD/WN, no apparent distress Head: normocephalic, atraumatic Eyes: normal inspection, PERRL, EOMI, sclerae normal (conjunctivae pink) ENT: hearing grossly normal, + pertinent finding (NGT right nostril) Neck: supple, no adenopathy, thyroid normal, no JVD, trachea midline Respiratory/Chest: lungs clear, no respiratory distress, no accessory muscle use Cardiovascular: regular rate, rhythm, no edema, no gallop, no JVD, no murmur Abdomen/GI: + pertinent finding (quiet bowel sounds, slightly distended, mild right-sided tenderness, right ostomy with loose brown stool) Extremities/Musculoskelatal: normal inspection, no calf tenderness, no pedal edema Neurologic/Psych: chiropractic assistant II-XII nml as tested (PERRL, EOMI, no facial palsy), alert, oriented x 3 Skin: normal color, warm/dry, no rash Lymphatic: no adenopathy Hospital Course SMALL BOWEL OBSTRUCTION on ct scan Hx of colon Ca with rectosigmoid resection. on NG tube, iv fluids, iv antiemetics and pain control Surgery on board pain improved NG tube draining a lot if continues to drain plan for ct abd/pelvis in am as per surgery OFF of NG tube/ Has bowel sounds and bowels moving tolerating clears started on full liquids and advancing as tolerates TOLERATING SOFT DIET DISCHARGED HOME HEPATIC LESION LEFT LOBE History of liver met and s/p resection. Recent MRI consistent with cysts. TO Follow as out patient. HYPERTHYROIDISM On methimazole and atenolol which were held while NPO and was placed on IV metoprolol. Resumed methimazole and atenolol yesterday stable so far DISCHARGED HOME Total time spent on discharge = 35MINUTES This includes examination of the patient, discharge planning, medication reconciliation, and communication with other providers. Discharge Instructions Please take this sheet to every appointment for the next month Discharge Instructions Admission Reason for Admission: Bowel Obstruction Discharge Discharge Diagnosis / Problem: SBO Discharge Goals Goal(s): Decrease discomfort, Improve function Activity Recommendations Activity Limitations: resume your previous activity . Instructions / Follow-Up Instructions / Follow-Up FOLLOWUP WITH FAMILY DOCTOR Cora Kenny ON Sep AT 1:20PM. Current Hospital Diet Patient's current hospital diet: Regular Diet Discharge Diet Recommended Diet: Regular Diet (SOFT DIET FOR FEW DAYS) Pending Studies Studies pending at discharge: no Medical Emergencies . Who to Call and When: Medical Emergencies: If at any time you feel your situation is an emergency, please call 911 immediately. . Non-Emergent Contact Non-Emergency issues call your: Primary Care Provider . . "Provider Documentation" section prepared by Henrry Ruff. VTE Core Measure Inpt VTE Proph given/why not?: SCD's
[2016-10-14] MEDS ORDERED: B-COTAB18 PO (13:15)
[2016-10-14] MEDS ORDERED: CHOL20009 PO (13:15)
== END 2016-09-08 17:39 | disposition home or self-care (01) | DRG 389 ==
LOC: ENRESERVDT → ENRESERVTM → C.EDB 00:01 → C.2T 04:14 → EDBEDREQ 04:16 → EDBEDREQSVC 04:16
PROVIDERS: ADMIT Hospitalist; ATTEND Internal Medicine
DX: K56.60 Unspecified intestinal obstruction (principal); C20 Malignant neoplasm of rectum; K56.7 Ileus, unspecified; E05.90 Thyrotoxicosis, unspecified without thyrotoxic crisis or storm; K76.89 Other specified diseases of liver; I10 Essential (primary) hypertension; Z85.038 Personal history of other malignant neoplasm of large intestine; Z85.05 Personal history of malignant neoplasm of liver; Z90.49 Acquired absence of other specified parts of digestive tract; Z92.21 Personal history of antineoplastic chemotherapy; Z92.3 Personal history of irradiation; Z79.899 Other long term (current) drug therapy

== ENCOUNTER → 2016-10-14 | Outpatient (CLI) | payer BC ==
[~2016-10-14] MED LIST changes: +B-COTAB18 PO; +CHOL20009 PO; -MULT-506 PO
[2016-10-14 13:00] VITALS: BP 131/92; PULSE 96; TEMP 36.7; O2SAT 99
--- NOTE | 2016-10-14 18:38 | Radiation Oncology Follow-Up ---
Radiation Oncology Follow-Up Date of Visit Oct 14, 2016. Radiation Completion Date 03/13/14 Diagnosis (1) Carcinoma of rectosigmoid (colon) Status: Resolved Onset Date: 08/18/2013 Permanent Comment: Rectal mass on digital exam Status post MRI revealing liver metastasis Status post FNA of liver revealing adenocarcinoma Colonoscopy 08/23/2013 revealing obstructing mass rectosigmoid colon EUS staging uT3 uT1 M1 Systemic chemotherapy with modified FOLFOX 6 Status post completion of combined radiation and chemotherapy. 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 Last Edited By: Vikki Ventura on Oct 15, 2015 13:13 Interim History Ms. Mendiola is a 46-year-old female diagnosed with metastatic rectal cancer in 2013. She initially underwent 6 cycles of FOLFOX 6 chemotherapy followed by pelvic chemoradiation therapy which completed in March 2014. She subsequently underwent a exploratory laparotomy which included a lower anterior resection, loop ileostomy and hepatic metastasis resection. Following the completion of her therapy, she did unfortunately developed a vaginal fistula after having a postoperative abscess. The patient continues to follow with Dr. Jesus Pichardo for medical oncology. She now presents for follow-up evaluation. In general, the patient is doing relatively well. Her major complaint at this point as she does have significant vaginal tightening which she does dose when she does have a pelvic examination. Otherwise, she denies any bleeding per rectum or issues with her ileostomy. She states her weight, energy and appetite are all stable. She states that she did have a colonoscopy by Dr. Reza last year which was essentially negative. She recently had restaging scans completed on 09/05/2016 which showed no evidence of recurrence in the scans of [address] Jesus Pichardo. Her most recent CEA level was 2.2 on 08/26/2016. Allergies Coded Allergies: POLLEN (Verified Allergy, Unknown, UNKNOWN, 09/05/16) SINUS PROBLEMS Home Medications Scheduled Atenolol (Tenormin), 25 MG PO DAILY B-Complex Vitamins (Vitamin B Complex), 1 TAB PO DAILY Cholecalciferol (Vitamin D), 1 TAB PO DAILY Methimazole (Methimazole ), 2.5 MG PO DAILY Review of Systems Gastrointestinal: Symptoms: WNL GI Comments: Food poisening over the weekend - okay now Oral: Symptoms: No Problems Respiratory: Symptoms: WNL Urinary: Symptoms: WNL Skin: Symptoms: No Problems Physical Exam Vital Signs Date Time Temp Pulse Resp B/P Pulse Ox O2 Delivery O2 Flow Rate FiO2 10/14/16 13:00 36.7 96 16 131/92 99 General Appearance: WD/WN, no apparent distress Eyes: normal inspection ENT: normal ENT inspection Neck: supple, no adenopathy Respiratory/Chest: chest non-tender, lungs clear, normal breath sounds, no respiratory distress Cardiovascular: regular rate, rhythm, no edema, no gallop, no JVD Abdomen: normal bowel sounds, non tender, soft, no organomegaly, + pertinent finding (Ileostomy noted, in place, in tact, clean with no sign of infection) Extremities: normal range of motion, non-tender, normal inspection, no pedal edema Neurologic/Psychiatric: corporate compliance manager II-XII nml as tested, no motor/sensory deficits, alert, normal mood/affect, oriented x 3 Skin: normal color, warm/dry, no rash Additional Studies CT ABD/PELVIS IV CONTRAST ONLY - 09/05/2016 CLINICAL HISTORY: Diffuse abdominal pain, nausea, vomiting. COMPARISON STUDY: 11/28/2013 TECHNIQUE: Following the IV administration of 92 mL of Optiray-320, CT scan of the abdomen and pelvis was performed from the lung bases to the proximal femurs. Images are reviewed in the axial, sagittal, and coronal planes. IV contrast was administered without complication. CT DOSE: 363.30 mGy.cm FINDINGS: Lower chest: There is a stable 3 mm right lower lobe pulmonary nodule. Liver: There are a few subcentimeter hypodensities, most consistent with cysts. Portal vein appears patent. There is minor prominence the central hepatic ducts. There are postsurgical changes of a partial right lobe hepatectomy. Gallbladder: Surgically absent Spleen: Mildly enlarged measuring 12 cm Pancreas: Unremarkable. Adrenal glands: Unremarkable. Kidneys: There is an 11 mm left renal cyst Bowel: There is a right-sided ostomy. There are dilated fluid-filled proximal small bowel loops with decompression of distal small bowel. The findings are consistent with a small bowel obstructive pattern. There are postsurgical changes in the rectosigmoid. There is presacral soft tissue thickening. Peritoneum: There is trace pelvic fluid. No free air is visualized. Vasculature: The abdominal aorta is normal in course and caliber. Adenopathy: None. Pelvic viscera: The bladder, and pelvic viscera are unremarkable. Skeletal structures: No destructive osseous lesions are seen. IMPRESSION: 1. Interval partial right hepatic lobectomy, and interval bowel surgery with creation of a right lower quadrant ostomy 2. Small bowel obstructive pattern. Assessment & Plan Ms. Mendiola is a 46-year-old female with oligometastatic rectal cancer treated with chemotherapy followed by pelvic chemoradiation and surgical resection of both the primary rectal cancer and liver metastasis. She completed pelvic chemoradiation on 03/13/2014. She did have a colonoscopy last year by Dr. Reza which was normal as per the patient and she did have a restaging scan completed in August 2016 which showed no evidence of recurrence. Her most recent CEA was within normal limits from August 2016 as well. The patient does continue to follow with Dr. Jesus Pichardo from medical oncology and will see him back in 6 months. At this point, the patient has no evidence of recurrence. We are happy with her progress overall. We would like to see her back in one-year for follow-up evaluation. Of note, we did provide the patient with a vaginal dilator and instructions on how to use it as well to help improve her vaginal tightness. She was encouraged to call us if she has any questions or concerns. The patient should continue to follow with gastroenterology, medical oncology, primary care and all of her other providers. Total Time In Follow-Up I spent 20 minutes examining and counseling the patient. I spent 15 minutes completing this note. Copy To Savi Gray M.D.; Cora Reaves D.O.; Jesus Pichardo M.D.
== END | disposition home or self-care (01) ==
LOC: C.ONC 12:45
PROVIDERS: ATTEND Physician Assistant Medical
DX: Z08 Encounter for follow-up examination after completed treatment for malignant neoplasm (principal); Z92.3 Personal history of irradiation; Z85.048 Personal history of other malignant neoplasm of rectum, rectosigmoid junction, and anus

== ENCOUNTER → 2017-10-12 | Outpatient (CLI) | payer BC ==
[2017-10-12 13:57] VITALS: BP 129/92; PULSE 96; TEMP 36.8; O2SAT 99
--- NOTE | 2017-10-12 14:57 | Radiation Oncology Follow-Up ---
Radiation Oncology Follow-Up Date of Visit Oct 12, 2017. Reason For Visit Annual follow-up Radiation Completion Date 03/13/14 Diagnosis (1) Carcinoma of rectosigmoid (colon) Status: Resolved Onset Date: 08/18/2013 Permanent Comment: Rectal mass on digital exam Status post MRI revealing liver metastasis Status post FNA of liver revealing adenocarcinoma Colonoscopy 08/23/2013 revealing obstructing mass rectosigmoid colon EUS staging uT3 uT1 M1 Systemic chemotherapy with modified FOLFOX 6 Status post completion of combined radiation and chemotherapy. 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 Last Edited By: Vikki Ventura on Oct 15, 2015 13:13 Interim History She has been doing well over the past year. Appetite is good and weight is stable. She is followed closely by medical oncology and has had recheck CAT scans. CEA titer is checked every 4 months and has been stable. She is due for recheck laboratory studies this month. She will also be due for recheck CT scans. She is having no difficulty with change of bowel habits. She has no problems with her ostomy appliance. There has been no change of urination. 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 She was given a vaginal dilator. She was given 2 different sizes to first use a smaller size than the larger. She has not been using this on a regular basis. Allergies Coded Allergies: POLLEN (Verified Allergy, Unknown, UNKNOWN, 09/05/16) SINUS PROBLEMS Home Medications Scheduled B-Complex Vitamins (Vitamin B Complex), 1 TAB PO DAILY Cholecalciferol (Vitamin D), 1 TAB PO DAILY Methimazole (Methimazole ), 2.5 MG PO DAILY Review of Systems Gastrointestinal: Symptoms: Ostomy GI Comments: Normal ostomy output; Oral: Symptoms: No Problems Respiratory: Symptoms: WNL Urinary: Symptoms: WNL Skin: Symptoms: No Problems Physical Exam Vital Signs Date Time Temp Pulse Resp B/P (MAP) Pulse Ox O2 Delivery O2 Flow Rate FiO2 10/12/17 13:57 36.8 96 12 129/92 99 Fatigue: None General Appearance: no apparent distress Eyes: normal inspection, EOMI ENT: normal ENT inspection, hearing grossly normal Neck: no adenopathy, thyroid normal Respiratory/Chest: lungs clear, no respiratory distress, no accessory muscle use Cardiovascular: regular rate, rhythm, no gallop, no murmur Abdomen: non tender, soft, no organomegaly Extremities: no pedal edema Neurologic/Psychiatric: no motor/sensory deficits, alert, normal mood/affect Skin: warm/dry Pain Management Patient Reports Pain: No Initial Pain Intensity: 0.0 Pain Management Plan She denies pain therefore requires no pain management. Laboratory Laboratory Results: were reviewed, and pertinent findings noted below Laboratory Comments: CEA October 05, 2017 was 1.7. Pathology Pathology Results: not applicable Imaging Imaging Studies: were reviewed, and pertinent findings noted below Imaging Comments Date/Time of Imaging Study Study Completed: 05/04/2017 8:39 AM Simphatic PACS Image Narrative EXAM CT ABDOMEN /PELVIS WITH IV CONTRAST WITH ORAL; CT THORAX WITH CONTRAST-2016 8:39 am HISTORY A case of rectal adenocarcinoma, S/P neoadjuvant chemotherapy, liver metastatic disease, S/P resection at both sites., lung nodules COMPARISON Comparison is made to the prior CT dated 11/04/2016. TECHNIQUE Helical axial images were obtained from the thoracic inlet through the pubic symphysis following the administration ofintravenous contrastandoral contrast. FINDINGS Chest: There is a right IJ MediPort which terminates in distal SVC. The heart is normal in size. There is no pericardial effusion. There are atherosclerotic calcifications of the coronary arteries. There are no enlarged axillary, mediastinal or hilar lymph nodes. There are no consolidations, pleural effusions or pneumothorax. There is a stable small pulmonary nodule in the right lower lobe (2.5 mm axial image 71). There are no new pulmonary nodules. Abdomen/pelvis: The liver is mildly nodular in contour, similar to the prior exam. Two small hepatic hypodensities are again noted, too small to adequately characterize, stable. Postoperative changes of partial hepatectomy are again noted. There are no new liver lesions. The gallbladder is absent. The common bile duct is mildly dilated, stable. The pancreas enhances homogeneously. There is no pancreatic ductal dilation. A small splenic hypodensity is again noted which is too small to adequately characterize. The adrenal glands are unremarkable. The kidneys enhance symmetrically. There is no hydronephrosis. There is a small cyst in the upper pole of the left kidney, stable. The bladder is partially distended and not adequately evaluated. The evaluation of the uterus is limited with CT. The endometrial stripe is heterogeneous and thick. Consider further evaluation with a pelvic ultrasound. Presacral soft tissue thickening is again noted. There is air in the cervix. The cervix closely abuts the surgical sutures in the pelvis. The abdominal aorta is within normal limits for size. There are no no enlarged abdominal or pelvic lymph nodes. The stomach is grossly unremarkable. There are no findings to suggest small bowel obstruction. There is an ileostomy in the right lower quadrant. There is scattered stool throughout the colon. Bones: There is no acute bony abnormality. IMPRESSION Chest: 1. Stable small pulmonary nodule in the right lower lobe. No new pulmonary nodules. 2. No enlarged thoracic lymph nodes. Abdomen/pelvis: 1. No new liver lesions. 2. Presacral soft tissue thickening with several small pockets of gas again noted. There is air in the cervix which closely abuts the surgical sutures in the pelvis. If there is clinical concern for a fistula between the cervix and the anastomosis, consider a water-soluble enema for further evaluation. 3. The endometrial stripe is heterogeneous and thick. Consider a pelvic ultrasound for further evaluation. Authenticated By Authenticating Date Authenticating Time Reading Providers(s) JONNATHAN CAMPOS MD 05-06-2017 14:41 JONNATHAN CAMPOS MD Assessment & Plan Plan: Continue regular follow-up with medical oncology. Laboratory studies and scans are planned for this month. Continue follow-up with her primary care physician. A follow-up appointment with our office was not given. She may call if she has any questions or concerns would be happy to see her. She was instructed to use the vaginal dilator on a regular basis. Total Time In Follow-Up I spent 20 minutes speaking to the patient and performing examination. I spent 15 minutes reviewing information and completing this note. [place] Copy To Savi Gray M.D.; Cora Reaves D.O.; Jesus Pichardo M.D.
== END | disposition home or self-care (01) ==
LOC: C.ONC 13:44
PROVIDERS: ATTEND Physician Assistant Medical
DX: Z08 Encounter for follow-up examination after completed treatment for malignant neoplasm (principal); Z92.3 Personal history of irradiation; Z85.038 Personal history of other malignant neoplasm of large intestine

== ENCOUNTER 2019-09-24 23:24 | Inpatient (IN) ==
[2019-09-24] MEDS ORDERED: HYDROmorphone INJ 1 MG/ML SYRINGE IV STA (23:44)
[2019-09-24] MEDS ORDERED: ONDANSETRON INJ 2 MG/ML 2 ML VIAL IV STA (23:44)
[2019-09-24] MEDS ORDERED: SODIUM CHLORIDE 0.9% 1000ML 1,000 ML IV ONE (23:44)
[2019-09-25 00:16] LABS: Basophils # (auto) 0.01 K/uL (0-0.2); Basophils % (auto) 0.1 %; Eosinophils # (auto) 0.04 K/uL (0-0.5); Eosinophils % (auto) 0.5 %; Hematocrit (blood only) 42.9 % (37-47); Hemoglobin 15.4 g/dL (12.0-16.0); Immature Granulocytes # (auto) 0.02 K/uL (0.00-0.02); Immature Granulocytes % (auto) 0.2 %; Lymphocytes # (auto) 0.82 K/uL (1.2-3.4); Lymphocytes % (auto) 10.1 %; Mean Corpuscular Hemoglobin 31.6 pg (25-34); Mean Corpuscular Hgb Conc 35.9 g/dL (32-36); Mean Corpuscular Volume 87.9 fL (80-100); Mean Platelet Volume 9.5 fL (7.4-10.4); Monocytes # (auto) 0.32 K/uL (0.11-0.59); Monocytes % (auto) 3.9 %; Neutrophils # (auto) 6.93 K/uL (1.4-6.5); Neutrophils % (auto) 85.2 %; Platelet Count 206 K/uL (130-400); RDW Coefficient of Variation 12.5 % (11.5-14.5); RDW Standard Deviation 40.3 fL (36.4-46.3); Red Blood Count 4.88 M/uL (4.2-5.4); White Blood Count 8.14 K/uL (4.8-10.8)
[2019-09-25 00:31] LABS: Appearance Urine Cloudy (Clear); Bilirubin Urine Negative (Negative); Blood Urine 1+ (Negative); Color Urine Yellow; Glucose Urine UA Negative (Negative); Ketones Urine Trace (Negative); Leukocyte Esterase Urine 3+ (Negative); Nitrite Urine Negative (Negative); Pregnancy Test, Urine Negative (Negative); Protein Urine Negative (Negative); RBC Urine Automated 0-4 /hpf (0-4); Specific Gravity Urine 1.023 (1.000-1.030); Urobilinogen Urine Negative (Negative); WBC Urine Automated >30 /hpf (0-5); pH Urine 5.5 (4.5-7.5)
[2019-09-25] MEDS ORDERED: LORazepam 1 MG/2 ML VIAL IV STA (00:32)
[2019-09-25 00:40] LABS: Alanine Aminotransferase 26 U/L (12-78); Albumin Level 3.8 gm/dl (3.4-5.0); Aspartate Aminotransferase 14 U/L (15-37); BUN Creatinine Ratio 17.6 (10-20); Bilirubin Direct < 0.1 mg/dl (0-0.2); Blood Urea Nitrogen 13 mg/dl (7-18); Carbon Dioxide 29 mmol/L (21-32); Chloride 103 mmol/L (98-107); Creatinine Clr Calc Pharmacy 97.7 ml/min; Est GFR (African American) 115.9; Glucose 143 mg/dl (70-99); Lipase 97 U/L (73-393); Potassium 3.5 mmol/L (3.5-5.1); Sodium 138 mmol/L (136-145)
[2019-09-25 00:42] LABS: Alkaline Phosphatase 108 U/L (45-117); Bilirubin,Total 0.5 mg/dl (0.2-1); Total Protein 7.7 gm/dl (6.4-8.2)
[2019-09-25 00:44] LABS: Bacteria Urine Automated 1+ (Negative); Calcium Oxalate Crystals Urine Present (None Prsent); Mucus Urine Present (None Prsent)
[2019-09-25 01:27] LABS: Magnesium 1.9 mg/dl (1.8-2.4)
[2019-09-25] MEDS ORDERED: METOPROLOL TARTRATE 1 MG/ML VIAL IV STA (01:27)
--- NOTE | 2019-09-25 02:06 | History & Physical Report ---
Date of Service September 25, 2019 Assessment & Plan (1) Small bowel obstruction: Recurrent SBO hx metastatic colon cancer status post surgery, chemoradiation (disease currently in remission) Situational hypertension Postprandial hyperglycemia rule out DM Asymptomatic pyuria Patient at risk for complicated UTI, hx peritoneal vaginal fistula as per records Patient not septic for now hyperthyroidism as per records. Currently off maintenance medications. Medical telemetry given hypertensive urgency Analgesia, anxiolytic PRN Continue NGT decompression Surgery consult RE recurrent SBO (ER provider already in touch with Dr. Cruz.) Check hemoglobin A1c Follow urine cultures, hold off on antibiotics for now. DVT prophylaxis. SCDs for now (RE traumatic epistaxis; Lovenox 40 mg subcutaneous daily once epistaxis resolved and hemoglobin stable.) Full code Text document was generated using [employer] voice recognition software. It may contain grammatical or spelling errors. Kindly contact undersigned for clarification of any documentation item in question. History of Present Illness Chief Complaint: Abdominal pain Primary Care Provider: Cora Reaves DO History obtained from patient, family, and records. Medical history significant for metastatic colon cancer status post surgery, chemoradiation, hyperthyroidism as per records. Recent confinement August 2016 for small bowel obstruction resolved with conservative management. Last night around dinnertime, patient noted achy central abdominal pain with nausea, no emesis. Patient subsequently noted some slowing of ileostomy output. No fever, no chills. No chest pain, no S OB. At the ER, NGT inserted for SBO. Traumatic epistaxis on first attempt. Medical History as above Surgical History : Breast lump excision, bowel surgery vascular device placement, urologic procedures, liver biopsy, hepatectomy, hysteroscopic biopsy/polypectomy Family History : Breast cancer Personal/Social history : Non-smoker, occasional EtOH intake, research assistant research scientist Allergies Allergy/AdvReac Type Severity Reaction Status Date / Time pollen extracts Allergy Unknown UNKNOWN Verified 09/25/19 01:33 Home Medications Home Medications Medication Instructions Recorded Confirmed Type multivitamin [Multiple Vitamins] 1 tab PO DAILY 09/25/19 09/25/19 History Past Med/Surg History Medical History 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" Hyperthyroidism (Chronic) Surgical History History of breast lump/mass excision (Chronic ~2006) Status post biopsy (Chronic 08/23/13) Status post colon resection (Chronic) Social History Preferred Language: Estonian Communication Ability: Effective 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 Beliefs That Will Affect Care: None Current Living Situation: Significant Other Other Information That Helps Us Care for You: No Feels Safe at Home: Yes Safety Concerns: Feels Safe At This Time Smoking Status: Never smoker Second Hand Exposure: No ; Hx Alcohol Use: No Hx Substance Use: No Review of Systems Review of Systems: As per HPI, all 10 systems reviewed, all other ROS negative Physical Exam Physical Exam: GENERAL: slightly uncomfortable, slightly anxious, no respiratory distress SKIN: Normal color, warm HEENT: [place] palpebral conjunctivae, no ptosis, dry buccal mucosa, NGT to right nostril, dried blood left nostril NECK : Supple, no tenderness CHEST : CTA, no tenderness HEART : Tachycardic , no obvious murmurs ABDOMEN: Some distention, minimal central abdominal tenderness, ileostomy bag on the right side EXTREMITIES : No LE swelling/tenderness, no other conspicuous deformities noted NEUROLOGIC : Coherent, no facial asymmetry, no other gross focality Results & Data Vital Signs (Past 12 Hours) Vital Signs Temp Pulse Pulse Resp BP BP Pulse Ox 09/25/19 01:38 101 H 20 163/101 H 97 09/25/19 00:00 90 15 155/117 H 98 09/24/19 23:31 36.6 C 91 H 18 148/102 H 99 Laboratory Results Laboratory Results WBC 8.14 K/uL (4.8-10.8) 09/25/19 00:05 RBC 4.88 M/uL (4.2-5.4) 09/25/19 00:05 Hgb 15.4 g/dL (12.0-16.0) 09/25/19 00:05 Hct 42.9 % (37-47) 09/25/19 00:05 MCV 87.9 fL (80-100) 09/25/19 00:05 MCH 31.6 pg (25-34) 09/25/19 00:05 MCHC 35.9 g/dL (32-36) 09/25/19 00:05 RDW Std Deviation 40.3 fL (36.4-46.3) 09/25/19 00:05 RDW Coeff of Faiza 12.5 % (11.5-14.5) 09/25/19 00:05 Plt Count 206 K/uL (130-400) 09/25/19 00:05 MPV 9.5 fL (7.4-10.4) 09/25/19 00:05 Immature Gran % (Auto) 0.2 % 09/25/19 00:05 Neut % (Auto) 85.2 % 09/25/19 00:05 Lymph % (Auto) 10.1 % 09/25/19 00:05 [place] % (Auto) 3.9 % 09/25/19 00:05 Eos % (Auto) 0.5 % 09/25/19 00:05 Baso % (Auto) 0.1 % 09/25/19 00:05 Immature Gran # (Auto) 0.02 K/uL (0.00-0.02) 09/25/19 00:05 Neut # (Auto) 6.93 K/uL (1.4-6.5) H 09/25/19 00:05 Lymph # (Auto) 0.82 K/uL (1.2-3.4) L 09/25/19 00:05 [place] # (Auto) 0.32 K/uL (0.11-0.59) 09/25/19 00:05 Eos # (Auto) 0.04 K/uL (0-0.5) 09/25/19 00:05 Baso # (Auto) 0.01 K/uL (0-0.2) 09/25/19 00:05 Sodium 138 mmol/L (136-145) 09/25/19 00:05 Potassium 3.5 mmol/L (3.5-5.1) 09/25/19 00:05 Chloride 103 mmol/L (98-107) 09/25/19 00:05 Carbon Dioxide 29 mmol/L (21-32) 09/25/19 00:05 Anion Gap 5.0 (3-11) 09/25/19 00:05 BUN 13 mg/dl (7-18) 09/25/19 00:05 Creatinine 0.71 mg/dl (0.6-1.2) 09/25/19 00:05 Est Cr Clr Drug Dosing 97.7 ml/min 09/25/19 00:05 Est GFR ( Amer) 115.9 09/25/19 00:05 Est GFR (Non-Af Amer) 100.0 09/25/19 00:05 BUN/Creatinine Ratio 17.6 (10-20) 09/25/19 00:05 Glucose 143 mg/dl (70-99) H 09/25/19 00:05 Calcium 10.0 mg/dl (8.5-10.1) 09/25/19 00:05 Magnesium 1.9 mg/dl (1.8-2.4) 09/25/19 00:05 Total Bilirubin 0.5 mg/dl (0.2-1) 09/25/19 00:05 Direct Bilirubin < 0.1 mg/dl (0-0.2) 09/25/19 00:05 AST 14 U/L (15-37) L 09/25/19 00:05 ALT 26 U/L (12-78) 09/25/19 00:05 Alkaline Phosphatase 108 U/L (45-117) 09/25/19 00:05 Total Protein 7.7 gm/dl (6.4-8.2) 09/25/19 00:05 Albumin 3.8 gm/dl (3.4-5.0) 09/25/19 00:05 Lipase 97 U/L (73-393) 09/25/19 00:05 Urine Color Yellow 09/25/19 00:05 Urine Appearance Cloudy (Clear) A 09/25/19 00:05 Urine pH 5.5 (4.5-7.5) 09/25/19 00:05 Ur Specific [place] 1.023 (1.000-1.030) 09/25/19 00:05 Urine Protein Negative (Negative) 09/25/19 00:05 Urine Glucose (UA) Negative (Negative) 09/25/19 00:05 Urine Ketones Trace (Negative) H 09/25/19 00:05 Urine Blood 1+ (Negative) H 09/25/19 00:05 Urine Nitrite Negative (Negative) 09/25/19 00:05 Urine Bilirubin Negative (Negative) 09/25/19 00:05 Urine Urobilinogen Negative (Negative) 09/25/19 00:05 Ur Leukocyte Esterase 3+ (Negative) H 09/25/19 00:05 Urine WBC (Auto) >30 /hpf (0-5) H 09/25/19 00:05 Urine RBC (Auto) 0-4 /hpf (0-4) 09/25/19 00:05 U Hyaline Cast (Auto) 1-5 /lpf (0-5) 09/25/19 00:05 U Epithel Cells (Auto) 10-20 /lpf (0-5) H 09/25/19 00:05 Urine Bacteria (Auto) 1+ (Negative) H 09/25/19 00:05 Urine Crystals Not Reportable 09/25/19 00:05 Calcium Oxalate Crystal Present (None Prsent) A 09/25/19 00:05 Urine Mucus Present (None Prsent) A 09/25/19 00:05 Urine Yeast Not Reportable 09/25/19 00:05 Urine Test Negative (Negative) 09/25/19 00:[address] abdomen pelvis initial read 9 mm cyst left lower lobe. Small bowel obstruction with transition point left mid abdomen. Postsurgical changes. EKG as per my interpretation: Rate 105, sinus tachycardia, normal axis, no ischemia
[2019-09-25] MEDS ORDERED: LORazepam 0.25 MG/0.5 ML VIAL IV PRN (03:06)
[2019-09-25] MEDS ORDERED: MoRPHine SULFATE 4 MG/ML 1 ML CARP\\VIAL IV PRN (03:06)
[2019-09-25] MEDS ORDERED: PROMETHAZINE HCL 12.5 MG in SODIUM CHLORIDE 0.9% 50 ML IV PRN (03:06)
[2019-09-25] MEDS ORDERED: TRAMADOL HCL 50 MG TABLET PO PRN (03:06)
[2019-09-25] MEDS: POTASSIUM CHLORIDE 40 MEQ in SODIUM CHLORIDE 0.9% 1000ML 1,000 ML IV SCH ×2 (03:38→23:12)
--- NOTE | 2019-09-25 04:02 | Emergency Department Note ---
Entered by Edinson Elizabeth acting as a scribe for Aiden Regalado MD ED Provider Note Name: MUSA WILKINS Age: 49 Arrives Via: Walk-In Informant: Patient CC: abdominal pain HPI: [id number] arrives for evaluation of constant abdominal pain that began this evening. The patient states that she is nauseous and having upper abdominal pain. She notes she has a history of abdominal surgeries and has an ostomy bag in place. She reports that she emptied the bag about 45 minutes ago but there has been little output. The patient denies chest pain, fevers, vomiting, and any other symptoms. The patient's last small bowel obstruction was August of 2016, and she finished Chemotherapy in 2014 for her colon cancer. ROS: See above HPI for pertinent positives & negatives. A total of 10 systems reviewed and were otherwise negative. Past Medical History:Colon CA, Hyperthyroid Past Surgical History:Bowel resection, breast mass excision Family History:See Below Social History:Non smoker, lives with , occasional etoh Home Medications:See Below Allergies:pollen extracts Vitals:BP 148/102, HR 91, RESP 18, TEMP 97.9, O2 sat 99 Physical Exam: GENERAL: Patient is uncomfortable appearing and in moderate distress. EYES: No scleral icterus, unremarkable pupils. ENT: Mucous membranes moist, no nasal congestion. NECK: No masses appreciated, nomeningismus, trachea is midline. RESPIRATORY: No dyspnea. Clear to auscultation and equal bilaterally. No wheeze, no rhonchi. CARDIOVASCULAR: Regular rate and rhythm.No murmurs, rubs, gallops appreciated. GASTROINTESTINAL: Abdomen soft, diffuse mild tenderness over entire abdomen, no peritonitis.Hyperactive bowel sounds over epigastric region and RUQ. No masses appreciated. Ostomy in place in right mid-abdomen with no stool. BACK: No midline tenderness, no CVA tenderness EXTREMITIES: Normal motion all extremities, no cyanosis, no edema. NEUROLOGIC: Alert and oriented, no acute motor or sensory deficits, no focal weakness, cranial nerves grossly intact. SKIN: No rash, no jaundice, no diaphoresis. ED Course: Prior Medical Record, Triage/Nursing Notes, Medications, Allergies reviewed by Me Vital Signs: reviewed and remarkable for HTN Labs:Reviewed and remarkable for no significant abnormalities Interventions: saline lock, dilaudid 1mg IV, zofran 4mg IV, ativan 1mg IV, nss bolus, ng tube Imaging:[facility] Radiologist interpretation reviewed by me: CT abdo pelv wo con: SBO EKG:none Reassessments/Times: 2339: Past medical records reviewed. The patient was evaluated in room C02. A complete history and physical exam was performed. 0031: The patient notes that she is feeling better. She requested something to calm her down before NG tube. She states that she previously did well with Ativan. 0058: I spoke with Dr. Cruz- [facility] general surgery. He is comfortable with her going to the medicine service. 0101: I spoke with Dr.Oconer Rose hospitalist. He will evaluate for further management. 0103: I updated the patient on the treatment plan. 0117: I checked on the patient. NG tube in place, about 500 ml NG outputs, declines pain and nausea medication. States her nose is sore from NG placement. Blood pressure:Elevated - Referred to PCP - [place] to be Situational. Disposition: Condition: .Disposition: being evaluated by hospitalist. Prescriptions:None. Differentials:Differential considered: pancreatitis, hepatitis, or acute cholecystitis, AAA, UTI, pyelonephritis, kidney stones, appendicitis, diverticulitis, shingles, bowel obstruction mesenteric ischemia, intussuscepti on, hernia. Medical Decision Makin yr old female with colon ca and resection 2013, complicated by episode SBO 2017 resolved with NG Tube arrives with rapid worsening nausea, and upper abdominal pains. SBO by CT. Comfortable post pain medications. Ativan for NG tube. NG outs 500ml and patient feeling better. Gen Surg on board with medicine admit. She is stable, does not have evidence of ischemic bowel and is comfortable with plan. Impression: Small bowel obstruction The scribe's documentation has been prepared under my direction and personally reviewed by me in its entirety. I confirm that the note above accurately reflects all work, treatment, procedures, and medical decision making performed by me. 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" Hyperthyroidism (Chronic) Surgical History History of breast lump/mass excision (Chronic ~2006) Status post biopsy (Chronic 08/23/13) Status post colon resection (Chronic) Social History Preferred Language: French Communication Ability: Effective 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 Beliefs That Will Affect Care: None Current Living Situation: Significant Other Other Information That Helps Us Care for You: No Feels Safe at Home: Yes Safety Concerns: Feels Safe At This Time Smoking Status: Never smoker Second Hand Exposure: No ; Hx Alcohol Use: No Hx Substance Use: No Results & Data Vital Signs Vital Signs - 24 hr 09/24/19 23:31 09/25/19 00:00 09/25/19 00:11 Temperature 36.6 C Temperature Source Oral Pulse Rate 91 H 90 91 H Pulse Rate [Finger] Pulse Rate from SpO2 Sensor 90 90 Respiratory Rate 18 15 12 Respiratory Effort / Characteristics Respiratory Depth Normal Blood Pressure 148/102 H 155/117 H Blood Pressure [Right Arm] Blood Pressure Mean 117 123 Blood Pressure Mean [Right Arm] Pulse Oximetry 99 98 99 Oxygen Delivery Method Room Air Room Air Room Air Sepsis Recent Fever Within 48 Hours No Sepsis New/Unexplained Change in Mental Status No Sepsis Action Taken by Nursing No Action Required 09/25/19 00:30 09/25/19 00:31 09/25/19 00:40 Temperature Temperature Source Pulse Rate 91 H 102 H 90 Pulse Rate [Finger] Pulse Rate from SpO2 Sensor 92 H 97 H 91 H Respiratory Rate 22 22 11 L Respiratory Effort / Characteristics Respiratory Depth Blood Pressure 147/109 H Blood Pressure [Right Arm] Blood Pressure Mean 117 Blood Pressure Mean [Right Arm] Pulse Oximetry 98 98 100 Oxygen Delivery Method Room Air Room Air Room Air Sepsis Recent Fever Within 48 Hours Sepsis New/Unexplained Change in Mental Status Sepsis Action Taken by Nursing 09/25/19 00:50 09/25/19 01:00 09/25/19 01:10 Temperature Temperature Source Pulse Rate 106 H 106 H 104 H Pulse Rate [Finger] Pulse Rate from SpO2 Sensor 108 H Respiratory Rate 13 16 12 Respiratory Effort / Characteristics Respiratory Depth Blood Pressure 165/104 H Blood Pressure [Right Arm] Blood Pressure Mean 129 Blood Pressure Mean [Right Arm] Pulse Oximetry 97 Oxygen Delivery Method Room Air Room Air Room Air Sepsis Recent Fever Within 48 Hours Sepsis New/Unexplained Change in Mental Status Sepsis Action Taken by Nursing 09/25/19 01:20 09/25/19 01:30 09/25/19 01:31 Temperature Temperature Source Pulse Rate 105 H 115 H 103 H Pulse Rate [Finger] Pulse Rate from SpO2 Sensor Respiratory Rate 13 17 19 Respiratory Effort / Characteristics Respiratory Depth Blood Pressure 163/101 H Blood Pressure [Right Arm] Blood Pressure Mean 112 Blood Pressure Mean [Right Arm] Pulse Oximetry Oxygen Delivery Method Room Air Room Air Room Air Sepsis Recent Fever Within 48 Hours Sepsis New/Unexplained Change in Mental Status Sepsis Action Taken by Nursing 09/25/19 01:38 09/25/19 01:40 09/25/19 01:50 Temperature Temperature Source Pulse Rate 102 H 95 H Pulse Rate [Finger] 101 H Pulse Rate from SpO2 Sensor 103 H 94 H Respiratory Rate 20 20 14 Respiratory Effort / Characteristics Non-Labored Spontaneous Respiratory Depth Normal Blood Pressure Blood Pressure [Right Arm] 163/101 H Blood Pressure Mean Blood Pressure Mean [Right Arm] 121 Pulse Oximetry 97 97 95 Oxygen Delivery Method Room Air Room Air Room Air Sepsis Recent Fever Within 48 Hours Sepsis New/Unexplained Change in Mental Status Sepsis Action Taken by Nursing 09/25/19 02:00 09/25/19 02:01 Temperature Temperature Source Pulse Rate 108 H 100 H Pulse Rate [Finger] Pulse Rate from SpO2 Sensor 107 H 102 H Respiratory Rate 22 21 Respiratory Effort / Characteristics Respiratory Depth Blood Pressure 150/110 H Blood Pressure [Right Arm] Blood Pressure Mean 125 Blood Pressure Mean [Right Arm] Pulse Oximetry 97 95 Oxygen Delivery Method Room Air Room Air Sepsis Recent Fever Within 48 Hours Sepsis New/Unexplained Change in Mental Status Sepsis Action Taken by Alf Medications Current Medication List: was personally reviewed by me Laboratory Data Attestation: I reviewed the patient's lab results. Result diagrams: 09/25/19 00:05 09/25/19 00:05 Lab Results 09/25/19 09/25/19 09/25/19 Range/Units 00:05 00:05 00:05 WBC 8.14 (4.8-10.8) K/uL RBC 4.88 (4.2-5.4) M/uL Hgb 15.4 (12.0-16.0) g/dL Hct 42.9 (37-47) % MCV 87.9 (80-100) fL MCH 31.6 (25-34) pg MCHC 35.9 (32-36) g/dL RDW Std Deviation 40.3 (36.4-46.3) fL RDW Coeff of Faiza 12.5 (11.5-14.5) % Plt Count 206 (130-400) K/uL MPV 9.5 (7.4-10.4) fL Immature Gran % (Auto) 0.2 % Neut % (Auto) 85.2 % Lymph % (Auto) 10.1 % [place] % (Auto) 3.9 % Eos % (Auto) 0.5 % Baso % (Auto) 0.1 % Immature Gran # (Auto) 0.02 (0.00-0.02) K/uL Neut # (Auto) 6.93 H (1.4-6.5) K/uL Lymph # (Auto) 0.82 L (1.2-3.4) K/uL [place] # (Auto) 0.32 (0.11-0.59) K/uL Eos # (Auto) 0.04 (0-0.5) K/uL Baso # (Auto) 0.01 (0-0.2) K/uL Sodium 138 (136-145) mmol/L Potassium 3.5 (3.5-5.1) mmol/L Chloride 103 (98-107) mmol/L Carbon Dioxide 29 (21-32) mmol/L Anion Gap 5.0 (3-11) BUN 13 (7-18) mg/dl Creatinine 0.71 (0.6-1.2) mg/dl Est Cr Clr Drug Dosing 97.7 ml/min Est GFR ( Amer) 115.9 Est GFR (Non-Af Amer) 100.0 BUN/Creatinine Ratio 17.6 (10-20) Glucose 143 H (70-99) mg/dl Calcium 10.0 (8.5-10.1) mg/dl Magnesium 1.9 (1.8-2.4) mg/dl Total Bilirubin 0.5 (0.2-1) mg/dl Direct Bilirubin < 0.1 (0-0.2) mg/dl AST 14 L (15-37) U/L ALT 26 (12-78) U/L Alkaline Phosphatase 108 (45-117) U/L Total Protein 7.7 (6.4-8.2) gm/dl Albumin 3.8 (3.4-5.0) gm/dl Lipase 97 (73-393) U/L Urine Color Urine Appearance (Clear) Urine pH (4.5-7.5) Ur Specific [place] (1.000-1.030) Urine Protein (Negative) Urine Glucose (UA) (Negative) Urine Ketones (Negative) Urine Blood (Negative) Urine Nitrite (Negative) Urine Bilirubin (Negative) Urine Urobilinogen (Negative) Ur Leukocyte Esterase (Negative) Urine WBC (Auto) (0-5) /hpf Urine RBC (Auto) (0-4) /hpf U Hyaline Cast (Auto) (0-5) /lpf U Epithel Cells (Auto) (0-5) /lpf Urine Bacteria (Auto) (Negative) Urine Crystals Calcium Oxalate Crystal (None Prsent) Urine Mucus (None Prsent) Urine Yeast Urine Test Negative (Negative) 09/25/19 Range/Units 00:05 WBC (4.8-10.8) K/uL RBC (4.2-5.4) M/uL Hgb (12.0-16.0) g/dL Hct (37-47) % MCV (80-100) fL MCH (25-34) pg MCHC (32-36) g/dL RDW Std Deviation (36.4-46.3) fL RDW Coeff of [place] (11.5-14.5) % Plt Count (130-400) K/uL MPV (7.4-10.4) fL Immature Gran % (Auto) % Neut % (Auto) % Lymph % (Auto) % [place] % (Auto) % Eos % (Auto) % Baso % (Auto) % Immature Gran # (Auto) (0.00-0.02) K/uL Neut # (Auto) (1.4-6.5) K/uL Lymph # (Auto) (1.2-3.4) K/uL [place] # (Auto) (0.11-0.59) K/uL Eos # (Auto) (0-0.5) K/uL Baso # (Auto) (0-0.2) K/uL Sodium (136-145) mmol/L Potassium (3.5-5.1) mmol/L Chloride (98-107) mmol/L Carbon Dioxide (21-32) mmol/L Anion Gap (3-11) BUN (7-18) mg/dl Creatinine (0.6-1.2) mg/dl Est Cr Clr Drug Dosing ml/min Est GFR ( Amer) Est GFR (Non-Af Amer) BUN/Creatinine Ratio (10-20) Glucose (70-99) mg/dl Calcium (8.5-10.1) mg/dl Magnesium (1.8-2.4) mg/dl Total Bilirubin (0.2-1) mg/dl Direct Bilirubin (0-0.2) mg/dl AST (15-37) U/L ALT (12-78) U/L Alkaline Phosphatase (45-117) U/L Total Protein (6.4-8.2) gm/dl Albumin (3.4-5.0) gm/dl Lipase (73-393) U/L Urine Color Yellow Urine Appearance Cloudy A (Clear) Urine pH 5.5 (4.5-7.5) Ur Specific [place] 1.023 (1.000-1.030) Urine Protein Negative (Negative) Urine Glucose (UA) Negative (Negative) Urine Ketones Trace H (Negative) Urine Blood 1+ H (Negative) Urine Nitrite Negative (Negative) Urine Bilirubin Negative (Negative) Urine Urobilinogen Negative (Negative) Ur Leukocyte Esterase 3+ H (Negative) Urine WBC (Auto) >30 H (0-5) /hpf Urine RBC (Auto) 0-4 (0-4) /hpf U Hyaline Cast (Auto) 1-5 (0-5) /lpf U Epithel Cells (Auto) 10-20 H (0-5) /lpf Urine Bacteria (Auto) 1+ H (Negative) Urine Crystals Not Reportable Calcium Oxalate Crystal Present A (None Prsent) Urine Mucus Present A (None Prsent) Urine Yeast Not Reportable Urine Test (Negative) Administered Medications Potassium Chloride 40 meq/ (Sodium Chloride) 1,020 mls @ 50 mls/hr IV .[id number] ANTHONY Stop: 10/25/19 03:29 Last Admin: 09/25/19 03:38 Dose: 50 mls/hr Documented by: [id number] Discontinued Medications Hydromorphone HCl (Dilaudid) 1 mg IV NOW STA Stop: 09/24/19 23:45 Last Admin: 09/25/19 00:05 Dose: 1 mg Documented by: [id number] Sodium Chloride (Nss 1000ml) 1,000 mls @ 999 mls/hr IV .[id number] ONE Stop: 09/25/19 00:44 Last Infusion: 09/25/19 01:12 Dose: 0 mls/hr Documented by: [id number] Admin: 09/25/19 00:05 Dose: 999 mls/hr Documented by: [id number] Lorazepam (Ativan) 1 mg in 2 mls @ 2 mls/min IV NOW STA Stop: 09/25/19 00:33 Last Admin: 09/25/19 00:37 Dose: 2 mls/min Documented by: [id number] Metoprolol Tartrate (Lopressor) 2.5 mg IV NOW STA Stop: 09/25/19 01:28 Last Admin: 09/25/19 01:39 Dose: 2.5 mg Documented by: [id number] Ondansetron HCl (Zofran) 4 mg IV NOW STA Stop: 09/24/19 23:45 Last Admin: 09/25/19 00:05 Dose: 4 mg Documented by: [id number] Blood Pressure Blood Pressure Findings: Elevated blood pressure Blood Pressure Disposition: further management by hospitalist Discharge Plan Visit Data *Final* Discharge Date/Time: 09/25/19 02:35 Chief Complaint: Abdominal Pain Stated Complaint: POSSIBLE INTESTINAL BLOCKAGE, NAUSEA, PAIN ED Provider: Aiden Regalado Discharge Problem: Small bowel obstruction Patient Disposition: Admitted As Inpatient Discharge Instructions Interventions: ED Discharge Assessment Last Done: 09/25/19 02:35 The scribe's documentation has been prepared under my direction and personally reviewed by me in its entirety. I confirm that the note above accurately reflects all work, treatment, procedures, and medical decision making performed by me.
--- NOTE | 2019-09-25 06:18 | CT Scan Report ---
CT abd pelvis wo con CT DOSE: 415.94 mGy.cm HISTORY: concern SBO, history colon ca with resection TECHNIQUE: Multiaxial CT images of the abdomen and pelvis were performed without contrast. A dose lo wering technique was utilized adhering to the principles of ALARA. COMPARISON STUDY: 09/05/2016 FINDINGS: Lung bases are clear. Prior cholecystectomy. Liver spleen and pancreas are unremarkable. Kidneys negative for calcification or hydronephrosis. Distended proximal to mid small bowel loops. These are primarily fluid containing with a nonspecific transition point within the left lower quadrant. There is a right-sided ostomy. It is not appear to b e an obstructive factor. There are stable postoperative changes of the presacral and low soft tissue pelvic region. The bladde r is relatively collapsed. Colon shows no significant distention. IMPRESSION: 1. Findings consistent with distal small bowel obstruction. 2. This is in the general vicinity of the left central lower abdomen. Exact etiology for the obstruct matthew process unclear. 3. Right-sided ostomy which appears to be patent and nondistended. 4. Stable postoperative changes as discussed above. ACT 112: Negative or not required by law. The above report was generated using voice recognition software. It may contain grammatical, syntax or spelling errors. Electronically signed by: Noe Lugo M.D. 09/25/2019 6:16 AM
[2019-09-25 06:51] LABS: Estimated Average Glucose 100 mg/dl; Hemoglobin A1C 5.1 % (4.5-5.6)
--- NOTE | 2019-09-25 09:16 | Surgery Consultation ---
Date of Consultation September 25, 2019 Assessment & Plan (1) Small bowel obstruction: 49 yo female with history of metastatic colon cancer s/p low anterior resection and liver resection in 2013 with one prior SBO in 2016 who presented to ED with abdominal pain, nausea, and decreased ostomy output yesterday. CT scan showing distal small bowel obstruction. Ostomy is functioning. No leukocytosis. Vitals stable. Abdominal pain resolved. NGT with 300 cc output last shift. Plan: Continue conservative management: IV fluids, bowel rest, NGT to LIS, pain management as needed Could consider clamping NGT for clamp trial as she is feeling better. will await eval by Dr. Parada May clamp NGT to ambulate hallway continue medical management Dr. Parada has seen and examined patient separately. Recommend clamping NGT for 4 hours and reassess for nausea or pain. If no pain or nausea can remove NGT and start clear liquids slowly. Continue medical management History of Present Illness Reason for Consultation: SBO Requesting Physician: Marshall Breen MD Attending Physician: Marshall Breen MD History of Present Illness Shelley is a 49 year-old female with history of metastatic colon cancer s/p colonic resection and ileostomy formation in 2013 at [facility]. Shelley states she presented to emergency department last night due to abdominal pain that began yesterday with associated nausea, decreased ostomy output, but no vomiting. Similar pain to prior SBO in August of 2016 which was treated conservatively at the time. Since she has been admitted , she states she is feeling better. Pain has resolved and osotomy is functioning well. Denies of any nausea or vomiting. Has a headache but otherwise no complaints. NGT with 300 cc output last shift and 500 cc after placement in ED. 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" Hyperthyroidism (Chronic) Surgical History History of breast lump/mass excision (Chronic ~2006) Status post biopsy (Chronic 08/23/13) Status post colon resection (Chronic) Social History Preferred Language: [place] Communication Ability: Effective Synthetic Cloth Binding Cutter Required: No Beliefs That Will Affect Care: None Current Living Situation: Significant Other Other Information That Helps Us Care for You: No Feels Safe at Home: Yes Safety Concerns: Feels Safe At This Time Smoking Status: Never smoker Second Hand Exposure: No ; Hx Alcohol Use: No Hx Substance Use: No Review of Systems Review of Systems: All systems reviewed & are unremarkable except as noted in HPI & below Physical Exam Constitutional: WD/WN, vitals as above no acute distress Respiratory: normal respiratory effort, lungs clear to auscultation Cardiovascular: RRR, no murmur, no edema Gastrointestinal (Abdomen): Inspection/Auscultation: abdomen normal to inspection and normal bowel sounds; abdomen not distended Percussion/Palpation: abdomen soft; abdomen nontender, no guarding and abdomen not rigid Ileostomy present in RLQ with air and liquid stool in bag NGT with light brown/bilious output in canister Skin: no rashes, warm and dry Psychiatric: A+Ox3, euthymic affect Results & Data Vital Signs (Past 12 Hours) Vital Signs Temp Pulse Pulse Resp BP BP Pulse Ox 09/25/19 07:15 36.6 C 105 H 20 144/94 H 97 09/25/19 06:19 90 09/25/19 03:45 104 H 09/25/19 02:57 36.6 C 113 H 18 137/89 95 09/25/19 02:31 98 H 13 95 09/25/19 02:30 94 H 12 138/101 H 95 09/25/19 02:20 100 H 19 95 09/25/19 02:10 98 H 14 94 09/25/19 02:01 100 H 21 95 09/25/19 02:00 108 H 22 150/110 H 97 09/25/19 01:50 95 H 14 95 09/25/19 01:40 102 H 20 97 09/25/19 01:38 101 H 20 163/101 H 97 09/25/19 01:31 103 H 19 09/25/19 01:30 115 H 17 163/101 H 09/25/19 01:20 105 H 13 09/25/19 01:10 104 H 12 09/25/19 01:00 106 H 16 165/104 H 09/25/19 00:50 106 H 13 97 09/25/19 00:40 90 11 L 100 09/25/19 00:31 102 H 22 98 09/25/19 00:30 91 H 22 147/109 H 98 09/25/19 00:11 91 H 12 99 09/25/19 00:00 90 15 155/117 H 98 09/24/19 23:31 36.6 C 91 H 18 148/102 H 99 Laboratory Results 09/25/19 09/25/19 09/25/19 Range/Units 00:05 00:05 00:05 WBC (4.8-10.8) K/uL RBC (4.2-5.4) M/uL Hgb (12.0-16.0) g/dL Hct (37-47) % MCV (80-100) fL MCH (25-34) pg MCHC (32-36) g/dL RDW Std Deviation (36.4-46.3) fL RDW Coeff of Faiza (11.5-14.5) % Plt Count (130-400) K/uL MPV (7.4-10.4) fL Immature Gran % (Auto) % Neut % (Auto) % Lymph % (Auto) % [place] % (Auto) % Eos % (Auto) % Baso % (Auto) % Immature Gran # (Auto) (0.00-0.02) K/uL Neut # (Auto) (1.4-6.5) K/uL Lymph # (Auto) (1.2-3.4) K/uL [place] # (Auto) (0.11-0.59) K/uL Eos # (Auto) (0-0.5) K/uL Baso # (Auto) (0-0.2) K/uL Sodium (136-145) mmol/L Potassium (3.5-5.1) mmol/L Chloride (98-107) mmol/L Carbon Dioxide (21-32) mmol/L Anion Gap (3-11) BUN (7-18) mg/dl Creatinine (0.6-1.2) mg/dl Est Cr Clr Drug Dosing ml/min Est GFR ( Amer) Est GFR (Non-Af Amer) BUN/Creatinine Ratio (10-20) Glucose (70-99) mg/dl Estimat Average Glucose 100 mg/dl Hemoglobin A1c 5.1 (4.5-5.6) % Calcium (8.5-10.1) mg/dl Magnesium (1.8-2.4) mg/dl Total Bilirubin (0.2-1) mg/dl Direct Bilirubin (0-0.2) mg/dl AST (15-37) U/L ALT (12-78) U/L Alkaline Phosphatase (45-117) U/L Total Protein (6.4-8.2) gm/dl Albumin (3.4-5.0) gm/dl Lipase (73-393) U/L TSH 2.820 (0.300-4.500) uIu/ml Urine Color Yellow Urine Appearance Cloudy A (Clear) Urine pH 5.5 (4.5-7.5) Ur Specific [place] 1.023 (1.000-1.030) Urine Protein Negative (Negative) Urine Glucose (UA) Negative (Negative) Urine Ketones Trace H (Negative) Urine Blood 1+ H (Negative) Urine Nitrite Negative (Negative) Urine Bilirubin Negative (Negative) Urine Urobilinogen Negative (Negative) Ur Leukocyte Esterase 3+ H (Negative) Urine WBC (Auto) >30 H (0-5) /hpf Urine RBC (Auto) 0-4 (0-4) /hpf U Hyaline Cast (Auto) 1-5 (0-5) /lpf U Epithel Cells (Auto) 10-20 H (0-5) /lpf Urine Bacteria (Auto) 1+ H (Negative) Urine Crystals Not Reportable Calcium Oxalate Crystal Present A (None Prsent) Urine Mucus Present A (None Prsent) Urine Yeast Not Reportable Urine Test (Negative) 09/25/19 09/25/19 09/25/19 Range/Units 00:05 00:05 00:05 WBC 8.14 (4.8-10.8) K/uL RBC 4.88 (4.2-5.4) M/uL Hgb 15.4 (12.0-16.0) g/dL Hct 42.9 (37-47) % MCV 87.9 (80-100) fL MCH 31.6 (25-34) pg MCHC 35.9 (32-36) g/dL RDW Std Deviation 40.3 (36.4-46.3) fL RDW Coeff of [place] 12.5 (11.5-14.5) % Plt Count 206 (130-400) K/uL MPV 9.5 (7.4-10.4) fL Immature Gran % (Auto) 0.2 % Neut % (Auto) 85.2 % Lymph % (Auto) 10.1 % [place] % (Auto) 3.9 % Eos % (Auto) 0.5 % Baso % (Auto) 0.1 % Immature Gran # (Auto) 0.02 (0.00-0.02) K/uL Neut # (Auto) 6.93 H (1.4-6.5) K/uL Lymph # (Auto) 0.82 L (1.2-3.4) K/uL [place] # (Auto) 0.32 (0.11-0.59) K/uL Eos # (Auto) 0.04 (0-0.5) K/uL Baso # (Auto) 0.01 (0-0.2) K/uL Sodium 138 (136-145) mmol/L Potassium 3.5 (3.5-5.1) mmol/L Chloride 103 (98-107) mmol/L Carbon Dioxide 29 (21-32) mmol/L Anion Gap 5.0 (3-11) BUN 13 (7-18) mg/dl Creatinine 0.71 (0.6-1.2) mg/dl Est Cr Clr Drug Dosing 97.7 ml/min Est GFR ( Amer) 115.9 Est GFR (Non-Af Amer) 100.0 BUN/Creatinine Ratio 17.6 (10-20) Glucose 143 H (70-99) mg/dl Estimat Average Glucose mg/dl Hemoglobin A1c (4.5-5.6) % Calcium 10.0 (8.5-10.1) mg/dl Magnesium 1.9 (1.8-2.4) mg/dl Total Bilirubin 0.5 (0.2-1) mg/dl Direct Bilirubin < 0.1 (0-0.2) mg/dl AST 14 L (15-37) U/L ALT 26 (12-78) U/L Alkaline Phosphatase 108 (45-117) U/L Total Protein 7.7 (6.4-8.2) gm/dl Albumin 3.8 (3.4-5.0) gm/dl Lipase 97 (73-393) U/L TSH (0.300-4.500) uIu/ml Urine Color Urine Appearance (Clear) Urine pH (4.5-7.5) Ur Specific [place] (1.000-1.030) Urine Protein (Negative) Urine Glucose (UA) (Negative) Urine Ketones (Negative) Urine Blood (Negative) Urine Nitrite (Negative) Urine Bilirubin (Negative) Urine Urobilinogen (Negative) Ur Leukocyte Esterase (Negative) Urine WBC (Auto) (0-5) /hpf Urine RBC (Auto) (0-4) /hpf U Hyaline Cast (Auto) (0-5) /lpf U Epithel Cells (Auto) (0-5) /lpf Urine Bacteria (Auto) (Negative) Urine Crystals Calcium Oxalate Crystal (None Prsent) Urine Mucus (None Prsent) Urine Yeast Urine Test Negative (Negative) Diagnostic Findings CT abd pelvis wo con CT DOSE: 415.94 mGy.cm HISTORY: concern SBO, history colon ca with resection TECHNIQUE: Multiaxial CT images of the abdomen and pelvis were performed without contrast. A dose lowering technique was utilized adhering to the principles of ALARA. COMPARISON STUDY: 09/05/2016 FINDINGS: Lung bases are clear. Prior cholecystectomy. Liver spleen and pancreas are unremarkable. Kidneys negative for calcification or hydronephrosis. Distended proximal to mid small bowel loops. These are primarily fluid containing with a nonspecific transition point within the left lower quadrant. There is a right-sided ostomy. It is not appear to be an obstructive factor. There are stable postoperative changes of the presacral and low soft tissue pelvic region. The bladder is relatively collapsed. Colon shows no significant distention. IMPRESSION: 1. Findings consistent with distal small bowel obstruction. 2. This is in the general vicinity of the left central lower abdomen. Exact etiology for the obstructive process unclear. 3. Right-sided ostomy which appears to be patent and nondistended. 4. Stable postoperative changes as discussed above.
[2019-09-25] MEDS: MULTIVITAMIN TAB PO SCH (10:05)
--- NOTE | 2019-09-25 21:20 | Hospitalist Progress Note ---
Date of Service September 25, 2019 Assessment & Plan (1) Small bowel obstruction: Continue NGT, bowel rest, IV fluids. Further management per General Surgery. (2) DVT prophylaxis: SCD's. (3) Discharge planning issues: Anticipated discharge to home. Family Medicine follow-up with Dr. Cora Reaves. Admission and Anticipated Discharge Date Admission Date: September 25, 2019 Subjective Recheck for bowel obstruction. Patient seen in their room around 1520. Admitted early this morning with recurrent bowel obstructions. Has discomfort from NG tube. Otherwise, feels better. Passing flatus via ostomy. Physical Exam Constitutional: no acute distress ENMT: NGT Respiratory: no respiratory distress Auscultation: lungs clear to auscultation bilaterally Cardiovascular: Rate/Rhythm: regular rate and regular rhythm Vessels: no JVD Extremities: no calf tenderness and no edema Gastrointestinal (Abdomen): Inspection/Auscultation: + abdomen distended and normal bowel sounds; + abdomen abnormal to inspection (right-sided ostomy) Percussion/Palpation: abdomen soft; abdomen nontender Skin: no rashes, warm and dry Psychiatric: Orientation: alert and oriented x 3 Results & Data ([facility]) Vital Signs (Past 12 Hours) Vital Signs Temp Pulse Pulse Resp BP Pulse Ox 09/25/19 19:06 36.8 C 91 H 16 159/91 H 95 09/25/19 15:00 76 09/25/19 14:38 36.7 C 96 H 20 126/71 96 09/25/19 12:20 36.9 C 96 H 20 131/92 97 Laboratory Results 09/25/19 00:05 09/25/19 00:05
--- NOTE | 2019-09-26 05:59 | Electrocardiogram Report ---
Test Reason : Blood Pressure : / mmHG Vent. Rate : 105 BPM Atrial Rate : 105 BPM P-R Int : 188 ms QRS Dur : 084 ms QT Int : 346 ms P-R-T Axes : 076 087 038 degrees QTc Int : 457 ms Sinus tachycardia Otherwise normal ECG No previous ECGs available Confirmed by Escobar Ramirez ([id number]) on 09/26/2019 5:58:39 AM Referred By: REFERRED SELF Confirmed By:Escobar Ramirez
[2019-09-26 06:41] LABS: Basophils # (auto) 0.02 K/uL (0-0.2); Basophils % (auto) 0.4 %; Eosinophils # (auto) 0.08 K/uL (0-0.5); Eosinophils % (auto) 1.7 %; Hematocrit (blood only) 40.4 % (37-47); Hemoglobin 14.3 g/dL (12.0-16.0); Lymphocytes # (auto) 1.35 K/uL (1.2-3.4); Lymphocytes % (auto) 29.2 %; Mean Corpuscular Hemoglobin 31.7 pg (25-34); Mean Corpuscular Hgb Conc 35.4 g/dL (32-36); Mean Corpuscular Volume 89.6 fL (80-100); Mean Platelet Volume 9.5 fL (7.4-10.4); Monocytes # (auto) 0.51 K/uL (0.11-0.59); Neutrophils # (auto) 2.67 K/uL (1.4-6.5); Neutrophils % (auto) 57.7 %; Platelet Count 187 K/uL (130-400); RDW Coefficient of Variation 12.8 % (11.5-14.5); RDW Standard Deviation 41.3 fL (36.4-46.3); Red Blood Count 4.51 M/uL (4.2-5.4); White Blood Count 4.63 K/uL (4.8-10.8)
[2019-09-26 07:15] LABS: BUN Creatinine Ratio 7.5 (10-20); Creatinine Clr Calc Pharmacy 96.9 ml/min; Est GFR (African American) 115.9; Potassium 3.9 mmol/L (3.5-5.1)
[2019-09-26] MEDS: MULTIVITAMIN TAB PO SCH (08:48)
--- NOTE | 2019-09-26 10:22 | Surgery Progress Note ---
Date of Service September 26, 2019 Assessment & Plan (1) Small bowel obstruction: 49 yo female with history of metastatic colon cancer s/p low anterior resection and liver resection in 2014 with one prior SBO in 2017 who presented to ED with abdominal pain, nausea, and decreased ostomy output yesterday. CT scan showing distal small bowel obstruction. Ostomy is functioning. No leukocytosis. Vitals stable. Abdominal pain resolved. Nausea resolved. Plan: May advance diet to full liquids and then as tolerated. No need for surgical intervention Okay from surgical standpoint for discharge if tolerates advancement of diet continue medical management our services signing off, please call with questions or concerns Dr. Parada was present during my examination and agrees with above. Subjective feeling great today ileostomy is functioning tolerated clear liquids last night no abdominal pain, n/v Physical Exam Constitutional: WD/WN, vitals as above no acute distress Respiratory: normal respiratory effort; no respiratory distress Gastrointestinal (Abdomen): Inspection/Auscultation: abdomen normal to inspection; abdomen not distended Percussion/Palpation: abdomen soft; abdomen nontender, no guarding and abdomen not rigid ileostomy full with air and liquid stool in RLQ Skin: no rashes, warm and dry Psychiatric: A+Ox3, euthymic affect Results & Data Vital Signs (Past 12 Hours) Vital Signs Temp Pulse Pulse Resp BP BP Pulse Ox 09/26/19 07:30 36.9 C 86 20 123/85 98 09/26/19 06:20 82 09/26/19 03:09 36.6 C 91 H 16 134/94 95 09/26/19 00:50 80 09/25/19 22:59 36.7 C 79 18 145/92 H 98 Laboratory Results 09/26/19 09/26/19 Range/Units 06:21 06:21 WBC 4.63 L (4.8-10.8) K/uL RBC 4.51 (4.2-5.4) M/uL Hgb 14.3 (12.0-16.0) g/dL Hct 40.4 (37-47) % MCV 89.6 (80-100) fL MCH 31.7 (25-34) pg MCHC 35.4 (32-36) g/dL RDW Std Deviation 41.3 (36.4-46.3) fL RDW Coeff of Faiza 12.8 (11.5-14.5) % Plt Count 187 (130-400) K/uL MPV 9.5 (7.4-10.4) fL Immature Gran % (Auto) 0.0 % Neut % (Auto) 57.7 % Lymph % (Auto) 29.2 % [place] % (Auto) 11.0 % Eos % (Auto) 1.7 % Baso % (Auto) 0.4 % Immature Gran # (Auto) 0.00 (0.00-0.02) K/uL Neut # (Auto) 2.67 (1.4-6.5) K/uL Lymph # (Auto) 1.35 (1.2-3.4) K/uL [place] # (Auto) 0.51 (0.11-0.59) K/uL Eos # (Auto) 0.08 (0-0.5) K/uL Baso # (Auto) 0.02 (0-0.2) K/uL Sodium 141 (136-145) mmol/L Potassium 3.9 (3.5-5.1) mmol/L Chloride 109 H (98-107) mmol/L Carbon Dioxide 30 (21-32) mmol/L Anion Gap 2.0 L (3-11) BUN 5 L D (7-18) mg/dl Creatinine 0.71 (0.6-1.2) mg/dl Est Cr Clr Drug Dosing 96.9 ml/min Est GFR ( Amer) 115.9 Est GFR (Non-Af Amer) 100.0 BUN/Creatinine Ratio 7.5 L (10-20) Glucose 95 (70-99) mg/dl Calcium 9.0 (8.5-10.1) mg/dl
[2019-09-26] MEDS: POTASSIUM CHLORIDE 40 MEQ in SODIUM CHLORIDE 0.9% 1000ML 1,000 ML IV SCH (12:00)
[2019-09-26] MEDS: ACETAMINOPHEN 325 MG TAB PO PRN ×2 (12:00→17:56)
--- NOTE | 2019-09-26 20:52 | Hospitalist Progress Note ---
Date of Service September 26, 2019 Assessment & Plan (1) Small bowel obstruction: Initially managed with NGT, bowel rest, IV fluids. General Surgery consulted. Symptoms improved and NGT removed. Tolerating full liquid diet; advance diet as tolerated. (2) DVT prophylaxis: SCD's. (3) Discharge planning issues: Anticipated discharge to home. Family Medicine follow-up with Dr. Cora Reaves. Admission and Anticipated Discharge Date Admission Date: September 25, 2019 Subjective Recheck for bowel obstruction. Patient seen in their room around 1630. Feels better. NGT removed. Tolerating full liquids. No nausea, vomiting, abdominal pain. Passing stool & flatus via ostomy. Ambulating. Review of Systems: Constitutional- no fever. Cardiac- no chest pain. Pulmonary- no cough or SOB. GI- as noted above. - no urinary symptoms. Otherwise, as noted above. Review of Systems Review of Systems: As per HPI, all 10 systems reviewed, all other ROS negative Physical Exam Constitutional: no acute distress Respiratory: no respiratory distress Auscultation: lungs clear to auscultation bilaterally Cardiovascular: Rate/Rhythm: regular rate and regular rhythm Vessels: no JVD Extremities: no calf tenderness and no edema Gastrointestinal (Abdomen): Inspection/Auscultation: + abdomen distended and normal bowel sounds; + abdomen abnormal to inspection (right-sided ostomy) Percussion/Palpation: abdomen soft; abdomen nontender Skin: no rashes, warm and dry Psychiatric: Orientation: alert and oriented x 3 Results & Data ([facility]) Vital Signs (Past 12 Hours) Vital Signs Temp Pulse Pulse Resp BP BP Pulse Ox 09/26/19 18:45 36.8 C 65 20 133/92 97 09/26/19 15:53 68 09/26/19 15:06 36.7 C 99 H 20 141/96 H 98 Laboratory Results 09/26/19 06:21 09/26/19 06:21
[2019-09-27] MEDS: MULTIVITAMIN TAB PO SCH (08:04)
--- NOTE | 2019-09-27 12:16 | Hospitalist Progress Note ---
Date of Service September 27, 2019 Assessment & Plan (1) Small bowel obstruction: Presented with recurrent small bowel obstruction. Initially managed with NGT, bowel rest, IV fluids. General Surgery consulted. Symptoms improved and NGT removed. Diet advanced and tolerated. (2) DVT prophylaxis: SCD's. Ambulating. (3) Discharge planning issues: Discharge to home. Family Medicine follow-up with Dr. Cora Reaves. Admission and Anticipated Discharge Date Admission Date: September 25, 2019 Subjective Recheck for bowel obstruction. Doing well. Tolerating diet. No nausea, vomiting, abdominal pain. Passing stool & flatus via ostomy. Ambulating. Ready to go home. Physical Exam Constitutional: no acute distress Respiratory: no respiratory distress Auscultation: lungs clear to auscultation bilaterally Cardiovascular: Rate/Rhythm: regular rate and regular rhythm Vessels: no JVD Extremities: no calf tenderness and no edema Gastrointestinal (Abdomen): Inspection/Auscultation: + abdomen distended and normal bowel sounds; + abdomen abnormal to inspection (right-sided ostomy) Percussion/Palpation: abdomen soft; abdomen nontender Skin: no rashes, warm and dry Psychiatric: Orientation: alert and oriented x 3 Results & Data ([facility]) Vital Signs (Past 12 Hours) Vital Signs Temp Pulse Pulse Resp BP Pulse Ox 09/27/19 07:22 36.5 C 94 H 18 133/92 100 09/27/19 06:59 72 09/27/19 03:00 36.7 C 66 18 130/91 97
--- NOTE | 2019-09-28 07:07 | Discharge Summary ---
Date of Service Date of Admission: 09/25/19 Date of Discharge: 09/27/19 Admission HPI Per Admitting Provider History obtained from patient, family, and records. Medical history significant for metastatic colon cancer status post surgery, chemoradiation, hyperthyroidism as per records. Recent confinement August 2016 for small bowel obstruction resolved with conservative management. Last night around dinnertime, patient noted achy central abdominal pain with nausea, no emesis. Patient subsequently noted some slowing of ileostomy output. No fever, no chills. No chest pain, no S OB. At the ER, NGT inserted for SBO. Traumatic epistaxis on first attempt. Principal Diagnosis small bowel obstruction Discharge Data Allergies Allergy/AdvReac Type Severity Reaction Status Date / Time pollen extracts Allergy Unknown UNKNOWN Verified 09/25/19 01:33 Consultations 09/25/19 01:01 Consult General Surgery Routine ED Decision to Admit Stat Ordered Studies 09/24/19 23:44 CT abd pelvis wo con Urgent Hospital Course (1) Small bowel obstruction: Presented with recurrent small bowel obstruction. Initially managed with NGT, bowel rest, IV fluids. General Surgery consulted. Symptoms improved and NGT removed. Diet advanced and tolerated. (2) DVT prophylaxis: SCD's. Ambulating. (3) Discharge planning issues: Discharge to home. Family Medicine follow-up with Dr. Cora Reaves. Total Time Total Time Spent Total Time Spent (In Minutes): 25 Discharge Plan Discharge Items Patient Disposition: Home - Self-Care Reason For Visit: bowel obstruction Discharge Diagnosis: bowel obstruction Condition on Discharge: Good Activity: Resume your previous activity Non-emergency contact: Primary Care Provider and Hospitalist Call non-emergency contact if: you have any medication questions, your symptoms worsen and your temperature is above 101 Follow-up/Referrals: Cora Reaves, [Primary Care Provider] - () Diet: Regular Diet Comment: low roughage diet or full liquids if you feel bloated or nauseated Addtl Attending Provider Instructions: MEDICATION CHANGES: none SUMMARY OF TEST RESULTS: CT scan showed partial bowel obstruction OTHER INSTRUCTIONS: Seek medical attention if you have: * temperature above 101 * chest pain or trouble breathing * abdominal pain, , bloating, nausea, vomiting * diarrhea, dark stools or bloody stools * any unanswered questions or concerns Call 911 if symptoms are severe. Please take good care of yourself. Call if you have any questions or problems. You can reach a [facility] hospitalist on duty at [facility] 24 hours a day by calling [phone]. My cell # is [phone]. Pending Studies at Discharge: No Stand-Alone Forms: Work/School Release (ED), My [facility] Health, Smoking Cessation Medications and DC Order Prescriptions: Continued multivitamin [Multiple Vitamins] Tablet 1 tab PO DAILY RF: 0 Discharge Orders: Discharge Order (Routine); Ordered 09/27/19 Ordered By: Marshall Breen Admission Data Admit Date/Time: 09/25/19 02:08 Attending Provider: Marshall Breen Admit Provider: Wilman Crowley Primary Care Provider: Cora Reaves Other Providers: Wilman Crowley ; Noe Cruz Other Interventions: Discharge Summary Assessment (RN) Last Done: 09/27/19 12:35 DC Date/Time DO NOT enter until pt leaves facility: 09/27/19 13:03
== END 2019-09-27 13:03 | disposition home or self-care (01) | DRG 390 ==
LOC: ED 23:24 → 2W 09-25 02:08 → SUATTDRO 09-25 02:08 → 2W 09-25 02:35